=== PATIENT | female | born 1945 | race Caucasian/White ===

== ENCOUNTER → 2023-05-22 10:55 | Outpatient (REF) | payer OTHER, SELFPAY ==
[2023-05-22 11:43] LABS: ALT (SGPT) 13 U/L (0-35); AST (SGOT) 17 U/L (14-36); Albumin 2.9 g/dl (3.5-5.0); Alkaline Phosphatase 91 U/L (38-126); Blood Urea Nitrogen 29 mg/dl (7-17); Calcium 8.3 mg/dl (8.4-10.2); Carbon Dioxide 31 mmol/L (22-30); Chloride 98 mmol/L (98-107); Glucose 207 mg/dl (70-99); HDL Cholesterol 44 mg/dl; LDL Cholesterol, Calculated 67 mg/dl; Sodium 137 mmol/L (135-145); Total Bilirubin 0.5 mg/dl (0.2-1.3); Total Cholesterol 127 mg/dl (50-199); Total Protein 5.9 g/dl (6.3-8.2); Triglyceride 80 mg/dl (10-149); Very Low Density Lipoprotein 16 mg/dl (0-30); eGFR > 60.00
[2023-05-22 12:29] LABS: Glycohemoglobin (HgbA1c) 8.8 % (4.0-5.6)
== END ==
LOC: OLABWHC 10:55
PROVIDERS: ATTENDING PHYSICIAN Internal Medicine
DX: E11.9 Type 2 diabetes mellitus without complications (principal); D64.9 Anemia, unspecified; E78.5 Hyperlipidemia, unspecified; I50.9 Heart failure, unspecified
CPT/HCPCS: 36415; 80053; 80061; 83036

== ENCOUNTER → 2023-06-19 08:50 | Outpatient (REF) | payer OTHER, SELFPAY ==
[2023-06-19 10:13] LABS: Hematocrit 34.6 % (37.0-47.0); Hemoglobin 10.4 g/dL (12.0-16.0); Mean Corp Hgb Conc. 30.1 g/dL (33.0-37.0); Mean Corpuscular Hgb 25.5 pg (27.0-31.0); Mean Corpuscular Volume 84.8 fL (81.0-99.0); Mean Platelet Volume 10.5 fL (7.4-10.4); Platelet Count 276 10^3/uL (130-400); Red Blood Cell Count 4.08 10^6/uL (4.20-5.40); Red Cell Dist. Width 14.3 % (11.5-14.5); White Blood Cell Count 7.2 10^3/uL (4.8-10.8)
[2023-06-19 10:27] LABS: ALT (SGPT) 12 U/L (0-35); AST (SGOT) 20 U/L (14-36); Albumin 3.3 g/dl (3.5-5.0); Alkaline Phosphatase 100 U/L (38-126); Blood Urea Nitrogen 30 mg/dl (7-17); Calcium 8.4 mg/dl (8.4-10.2); Carbon Dioxide 32 mmol/L (22-30); Chloride 101 mmol/L (98-107); Glucose 232 mg/dl (70-99); Magnesium 2.2 mg/dl (1.6-2.3); Potassium 4.9 mmol/L (3.5-5.1); Sodium 136 mmol/L (135-145); Total Bilirubin 0.3 mg/dl (0.2-1.3); Total Protein 6.6 g/dl (6.3-8.2); eGFR > 60.00
[2023-06-19 13:58] LABS: Glycohemoglobin (HgbA1c) 8.8 % (4.0-5.6)
== END ==
LOC: OLABWHC 08:50
PROVIDERS: ATTENDING PHYSICIAN Internal Medicine
DX: I50.9 Heart failure, unspecified (principal); E11.40 Type 2 diabetes mellitus with diabetic neuropathy, unspecified; D64.9 Anemia, unspecified
CPT/HCPCS: 36415; 80053; 83036; 83735; 85027

== ENCOUNTER → 2023-06-30 14:27 | Outpatient (REF) | payer OTHER, MEDICAID, SELFPAY | LOC: DHCBC MAIN 14:27 | PROVIDERS: ATTENDING PHYSICIAN Internal Medicine; FAMILY PHYSICIAN Physician Assistant | DX: Z95.2 Presence of prosthetic heart valve (principal); I50.32 Chronic diastolic (congestive) heart failure; I63.9 Cerebral infarction, unspecified | CPT/HCPCS: 93306 ==

== ENCOUNTER → 2023-07-17 12:11 | Outpatient (REF) | payer OTHER, SELFPAY ==
[2023-07-17 12:35] LABS: Hematocrit 34.2 % (37.0-47.0); Hemoglobin 10.4 g/dL (12.0-16.0); Mean Corp Hgb Conc. 30.4 g/dL (33.0-37.0); Mean Corpuscular Hgb 25.7 pg (27.0-31.0); Mean Corpuscular Volume 84.4 fL (81.0-99.0); Mean Platelet Volume 10.2 fL (7.4-10.4); Platelet Count 226 10^3/uL (130-400); Red Blood Cell Count 4.05 10^6/uL (4.20-5.40); Red Cell Dist. Width 15.9 % (11.5-14.5); White Blood Cell Count 6.3 10^3/uL (4.8-10.8)
[2023-07-17 12:50] LABS: Blood Urea Nitrogen 30 mg/dl (7-17); Calcium 8.7 mg/dl (8.4-10.2); Carbon Dioxide 33 mmol/L (22-30); Chloride 101 mmol/L (98-107); Glucose 151 mg/dl (70-99); Magnesium 2.4 mg/dl (1.6-2.3); Potassium 5.4 mmol/L (3.5-5.1); Sodium 136 mmol/L (135-145); eGFR > 60.00
[2023-07-17 13:38] LABS: Glycohemoglobin (HgbA1c) 8.5 % (4.0-5.6)
== END ==
LOC: OLABWHC 12:11
PROVIDERS: ATTENDING PHYSICIAN Internal Medicine
DX: E11.9 Type 2 diabetes mellitus without complications (principal); I50.9 Heart failure, unspecified; I10 Essential (primary) hypertension
CPT/HCPCS: 36415; 80048; 83036; 83735; 85027

== ENCOUNTER → 2023-08-05 12:21 | Outpatient (REF) | payer OTHER, SELFPAY ==
[2023-08-05 12:59] LABS: Hematocrit 33.7 % (37.0-47.0); Hemoglobin 10.1 g/dL (12.0-16.0); Mean Corpuscular Hgb 25.7 pg (27.0-31.0); Mean Corpuscular Volume 85.8 fL (81.0-99.0); Mean Platelet Volume 10.6 fL (7.4-10.4); Platelet Count 211 10^3/uL (130-400); Red Blood Cell Count 3.93 10^6/uL (4.20-5.40); Red Cell Dist. Width 16.5 % (11.5-14.5); White Blood Cell Count 10.1 10^3/uL (4.8-10.8)
[2023-08-05 13:38] LABS: Blood Urea Nitrogen 48 mg/dl (7-17); Calcium 8.7 mg/dl (8.4-10.2); Carbon Dioxide 29 mmol/L (22-30); Chloride 95 mmol/L (98-107); Glucose 149 mg/dl (70-99); Potassium 5.8 mmol/L (3.5-5.1); Sodium 134 mmol/L (135-145); eGFR 41.83
[2023-08-05 13:43] LABS: NT-proBNP 9250 pg/ml
== END ==
LOC: OLABWHC 12:21
PROVIDERS: ATTENDING PHYSICIAN Internal Medicine
DX: R60.9 Edema, unspecified (principal); I89.0 Lymphedema, not elsewhere classified; I50.32 Chronic diastolic (congestive) heart failure; E11.00 Type 2 diabetes mellitus with hyperosmolarity without nonketotic hyperglycemic-hyperosmolar coma (NKHHC)
CPT/HCPCS: 36415; 80048; 83880; 85027

== ENCOUNTER 2023-08-05 23:13 | Inpatient (IN) | payer OTHER, SELFPAY ==
[2023-08-05 21:11] VITALS: BMI 46.8
[2023-08-05 21:17] VITALS: BP 138/66
--- NOTE | 2023-08-05 21:33 | ED.GENMED ---
History of Present Illness
General
Chief Complaint: Breathing Problem
Source: patient and ambulance crew
Exam Limitations: none
Time Seen by Provider: 08/05/23 21:17
Nursing documentation reviewed up to this point in time: agreed with
Travel History
Have you had any contact with someone who has COVID-19?: Unable to Answer
Do you have any symptoms of coronavirus? Fever > 100 degrees, chills, cough, shortness of breath, sore throat, loss of taste or smell, muscle aches, or headache?: Yes
Symptoms:: shortness of breath
History of Present Illness
History of Present Illness:
78-year-old female presents emergency department for shortness of breath and hypoxia. EMS reports oxygen reading of 75% on 4 L nasal cannula prior to arrival. She is normally on room air, no home oxygen is listed in her past medical history. She
is confused as to place and year.
Past History
Past History
ED Past Medical History: Asthma, Hypercholesterolemia, NIDDM, Hypothyroidism and Other (Sciatica, Cauda Equina Syndrome, Ulcers)
ED Past Surgical History: Appendectomy, Cardiac (Pacemaker, Aortic valve replaced), Gynecological (Right Oophorectomy), Tonsilectomy and Other (Cataracts, femoral Aneurysm repair)
Patient has exhibited threatening behavior?: No
PSI?: No
Social History
Tobacco: Non-smoker
Alcohol: None
Personal:
Living: assisted living
Review of Systems
Review of Systems
Allergies reviewed?: Yes
All Other Systems: Not applicable
Constitutional: Reports fever
EENT: Reports no symptoms
Respiratory: Reports trouble breathing
Cardiac: Reports no symptoms
ABD/GI: Reports no symptoms
: Reports no symptoms
Musculoskeletal: Reports no symptoms
Skin: Reports no symptoms
Phy Exam
Physical Exam
Physical Exam:
Physical Exam
General: Moderate distress, ill-appearing, obese
Neck: supple. no meningeal signs. normal posterior pharynx
Heart: s1/s2 tachycardia, no murmur. equal radial
pulses.
HEENT: Pupils equal round reactive to light, EOMI
Lungs: Moderate respiratory distress. Decreased with rales and rhonchi at bases bilaterally
Abdomen: normal bowel sounds. not tender. no CVAT
Neuro: alert to person. no focal neurological deficits cranial nerves II through XII intact
Skin: no rash, Lidoderm patch mid back
Psychiatric: well kept. interactive and cooperative
Extremities: no edema. no calf tenderness. negative homans. good distal pulses
Scores
Heart Failure Risk
Heart Failure Risk Score: Yes
History of Stroke or TIA: Yes
History of intubation for respiratory distress: No
Heart rate on ED arrival >/= 110: No
SaO2 <90% on arrival on room air: Yes
HR >/=110 during 3min walk test (or too ill to perform test): Yes
ECG has acute ischemic changes: No
Urea >/=12mmol/L (BUN 33.6mg/dL): Yes
Serum CO2>/=35mmol/L: No
Troponin I or T elevated to [place] Level (0.4mg/dL): No
NT-proBNP >/=5,000ng/L (5,000pg/ml): Yes
HF Risk Score: 6
Admission Status: VERY HIGH RISK 55.3% Consider admission to hospital
Course
Orders/Labs/Results
Orders:
Orders
08/05/23 21:22
Acetaminophen [Tylenol/Feverall] 650 mg .ROUTE .STK-MED ONE
08/05/23 21:31
Electrocardiogram (*1) Stat
Reason for Study: Other
Other Reason for Exam: pneumonia
Cardiac Monitoring- Treatment ONCE
EKG- Treatment ONCE
IV Insert/Care/Rem.- Treatment PRN
08/05/23 21:32
CR Chest Portable - 1 View Urgent
Comment:
Reason For Exam: short of breath, fever
Reason Study Needs to be Portable: Patient Unstable
08/05/23 21:41
Acetaminophen [Tylenol/Feverall] 650 mg RECTAL NOW STA
08/05/23 21:56
COVID-19 Antigen Urgent
Source: Nasal Swab
08/05/23 21:57
Complete Blood Count/With Diff Urgent
Comprehensive Metabolic Panel Urgent
Lactic Acid Q4H
Comment: CANCEL 2nd LACTIC ACID IF 1st LACTIC ACID IS LESS THAN 2
Troponin I Urgent
Blood Culture Urgent
ISAIAS Source: Blood/Venous
Specimen Description:
Influenza A+B Rapid Molecular Urgent
ISAIAS Source: Nasal Swab
Specimen Description:
08/05/23 22:43
Cefepime HCl [Maxipime] 2,000 mg IV NOW STA
08/05/23 22:55
Blood Culture Urgent
ISAIAS Source: Blood/Venous
Specimen Description:
08/05/23 23:06
Urinalysis Reflex To Culture Stat
Date Specimen was Collected: 08/05/23
Time Specimen was Collected: 23:05
Urine Microscopic Reflex Cult Stat
08/05/23 23:12
Arterial Blood Gas Urgent
%Oxygen/Room Air: 90% on 6L
Abnormal Lab Results
08/05/23 08/05/23
21:57 23:06
WBC 11.3 H 10^3/uL
(4.8-10.8)
RBC 3.90 L 10^6/uL
(4.20-5.40)
Hgb 10.1 L g/dL
(12.0-16.0)
Hct 32.8 L %
(37.0-47.0)
MCH 25.9 L pg
(27.0-31.0)
MCHC 30.8 L g/dL
(33.0-37.0)
RDW 16.4 H %
(11.5-14.5)
Abs Immat Gran (auto) 0.2 H 10^3/uL
(0-0.05)
Absolute Neuts (auto) 8.4 H 10^3/uL
(1.4-6.5)
Absolute Monos (auto) 1.1 H 10^3/uL
(0.1-0.6)
Immature Gran % 2.0 H %
(0-0.5)
Lymphocytes % 13.4 L %
(20.5-51.1)
Monocytes % 9.7 H %
(1.7-9.3)
Sodium 131 L mmol/L
(135-145)
Potassium 5.7 H mmol/L
(3.5-5.1)
BUN 52 H mg/dl
(7-17)
Creatinine 1.2 H mg/dL
(0.6-1.0)
Glucose 167 H mg/dl
(70-99)
AST 37 H U/L
(14-36)
Alkaline Phosphatase 160 H U/L
(38-126)
Troponin I 0.070 H* ng/ml
Urine Bacteria (Reflex) Few A
(Negative)
Urine Albumin (Reflex) 1+ A
(Neg - Trace)
08/05/23 21:57
08/05/23 21:57
Vital Signs
Initial and Last Documented VS:
Initial Vital Signs
Temp Pulse Resp BP Pulse Ox
99.0 F 104 16 138/66 82
08/05/23 21:17 08/05/23 21:17 08/05/23 21:17 08/05/23 21:17 08/05/23 21:17
Last Documented Vital Signs
Temp Pulse Resp BP Pulse Ox
99.1 F 100 17 166/82 92
08/06/23 04:21 08/06/23 02:30 08/06/23 02:30 08/06/23 01:30 08/06/23 03:04
MDM/Problems Addressed
Differential Diagnosis Includes:
Pneumonia, CHF
MDM/Problems Addressed:
78-year-old female with hypoxia, fever, acute on chronic CHF. She was antibiotics, IV Lasix. Admit to hospitalist.
Chronic conditions affecting care: DM and Cardiomyopathy
Acute Exacerbation and/or Progression of Chronic Illness: DM and Cardiomyopathy
*Radiology
Radiology exam reviewed: radiology read reviewed (Chest x-ray cardiomegaly, interstitial markings increased, multifocal infection versus pulmonary edema)
*Pulse Oximetry
Patient hypoxic: yes
*EKG
Interpreted by ED Provider?: Yes
EKG Intrepretation Date: 08/05/23
EKG Intrepretation Time: 21:48
Interpretation: abnormal
Comparison EKG: no comparison EKG present
Heart Rate: 101
Rate: tachycardiac
Rhythm: av sequential
[place]: normal axis
Interval: normal interval
QRS Pattern: normal QRS
Ischemia: no ischemia
*Dog Warden Interpretation
Rate: tachycardiac
Interpretation: abnormal
Heart Rate: 101
Rhythm: av sequential
*Critical Care Note
Total Time (30-74mins, 75-104mins- exclusive of procedures): Not Applicable
Patient Management
Social determinants of health affecting care: Living situation
Discussion with other providers: Hospitalist
Escalation/DeEscalation of care consider admission/obs:
admit indicated
ED Attending Note
-
Portions of this chart may have been created with voice recognition software.� Occasional wrong word or��sound alike� substitutions may have occurred due to the inherent limitations of voice recognition software.
Discharge Plan
Departure
Patient Disposition: Admit
Date of Disposition: 08/05/23
Time of Disposition: 22:34
Admit to: IMU
Presentation/result/management discussed w/ accepting MD/DO: Hospitalist
Patient with high blood pressure during this ER visit?: Yes
Condition: Fair
Discharge Problem:
Pneumonia, CHF (congestive heart failure)
Interventions
Interventions:
*Risk Screen - Suicide Last Done: 08/05/23 21:17
*General Assessment Last Done: 08/05/23 21:17
*Neglect/Abuse Screening Last Done: 08/05/23 21:17
ED- Fall Risk Assessment Last Done: 08/05/23 21:17
*ED COVID-19 Vaccine History Last Done: 08/05/23 21:17
*Nursing Disposition Last Done: 08/06/23 01:30
ED- Cardiac Assessment Last Done: 08/05/23 21:33
ED- Pulmonary Assessment Last Done: 08/05/23 21:33
Discharge Date and Time
Discharge Date/Time: 08/06/23 01:30
[2023-08-05] MEDS: TYLENOL/FEVERALL 650 MG RECTAL (21:42)
[2023-08-05 22:07] LABS: % Basophils 0.6 % (0-2); % Eosinophils 0.1 % (0-6); % Lymphocytes 13.4 % (20.5-51.1); % Monocytes 9.7 % (1.7-9.3); % Neutrophils 74.2 % (42.2-75.2); Absolute Basophils 0.1 10^3/uL (0-0.2); Absolute Immature Granulocytes 0.2 10^3/uL (0-0.05); Absolute Lymphocytes 1.5 10^3/uL (1.2-3.4); Absolute Monocytes 1.1 10^3/uL (0.1-0.6); Absolute Neutrophils 8.4 10^3/uL (1.4-6.5); Hematocrit 32.8 % (37.0-47.0); Hemoglobin 10.1 g/dL (12.0-16.0); Mean Corp Hgb Conc. 30.8 g/dL (33.0-37.0); Mean Corpuscular Hgb 25.9 pg (27.0-31.0); Mean Corpuscular Volume 84.1 fL (81.0-99.0); Mean Platelet Volume 9.7 fL (7.4-10.4); Nucleated Red Blood Cells % 0.5 %; Platelet Count 217 10^3/uL (130-400); Red Cell Dist. Width 16.4 % (11.5-14.5); White Blood Cell Count 11.3 10^3/uL (4.8-10.8)
[2023-08-05 22:17] LABS: Lactic Acid 0.7 mmol/L (0.7-2.0)
[2023-08-05 22:21] LABS: COVID-19 Antigen Negative (Negative)
[2023-08-05 22:30] LABS: ALT (SGPT) 24 U/L (0-35); AST (SGOT) 37 U/L (14-36); Albumin 3.6 g/dl (3.5-5.0); Alkaline Phosphatase 160 U/L (38-126); Blood Urea Nitrogen 52 mg/dl (7-17); Calcium 8.6 mg/dl (8.4-10.2); Carbon Dioxide 30 mmol/L (22-30); Chloride 98 mmol/L (98-107); Estimated Creatinine Clearance 46 ml/min; Glucose 167 mg/dl (70-99); Potassium 5.7 mmol/L (3.5-5.1); Sodium 131 mmol/L (135-145); Total Bilirubin 0.5 mg/dl (0.2-1.3); eGFR 46.05
[2023-08-05 22:37] VITALS: BP 116/100
[2023-08-05 23:00] VITALS: BP 129/90
[2023-08-05 23:13] LABS: Urine Albumin 1+ (Neg - Trace); Urine Bilirubin Negative (Negative); Urine Character Clear (Clear); Urine Color Yellow; Urine Glucose Negative (Negative); Urine Ketone Negative (Negative); Urine Leukocyte Negative (Negative); Urine Nitrite Negative (Negative); Urine Occult Blood Negative (Negative); Urine Specific Gravity 1.015 (<1.030); Urine Urobilinogen Negative (Neg - 1+)
[2023-08-05 23:20] LABS: Urine Red Blood Cell 0-2 /HPF (0-2)
[2023-08-05 23:21] LABS: Urine Bacteria Few (Negative); Urine White Cell 0-2 /HPF (0-5)
[2023-08-05 23:30] VITALS: BP 109/58
--- NOTE | 2023-08-05 23:49 | HPS.HSE ---
Addendum entered and electronically signed by Christian Lockhart DO 08/06/23 01:03:
Late Entry - Patient seen and examined independently on 08/05/23. Agree with findings and plan as set forth by Gloria Mohan PA-C.
Patient is a 78y F with PMH significant for chronic respiratory failure (hypoxemic and hypercapnic), CHF and DM-II who presents to ED for evaluation of hypoxemia. Patient is lethargic / mild confused in the ED and not able to contribute overmuch
to this history. She was noted to be hypoxemic at [facility] and sent for evaluation. No noted coughing. No complaints of chest pain. Patient is noted here to be hypoxemic and hypercapnic as well as febrile to 101.8.
Ass:
Acute on Chronic Hypoxemic and Hypercapnic Respiratory Failure
Acute TME secondary to the above
Chronic HFpEF - ? Acute component
Fever - Possible Atypical Pneumonia, Aspiration, etc
Non-Ischemic Myocardial Injury
SUMMER, Hyperkalemia
DM-II
ASCVD
Hypothyroidism
Morbid Obesity due to excess calories
Plan:
Admit for further evaluation and treatment.
Single dose of IV Lasix given on admission - follow for clinical response and changes in potassium / renal function.
Presentation seems most consistent to me to atypical pneumonia / viral infection.
IV abx for now. Follow-up culture data including urine testing, etc.
Hypercapnic on ABG done on admission - begin / continue PAP therapy and adjust as needed.
Cardio / Pulmonary consulted for further recommendations.
Continue basal : bolus insulin regimen.
Follow for clinical improvement.
Original Note:
Family Physician
-
Family Physician: Edy Santos
Chief Complaint
-
Hypoxia
History of Present Illness
Patient is a 78 y/o female with a past medical history of chronic hypoxic/hypercapnic heart failure, morbid obesity, sick sinus syndrome (status post pacemaker), asthma, hyperlipidemia, diabetes mellitus, obesity hypoventilation syndrome, and
cerebrovascular accident who presents for hypoxia from the [facility]. Patient is a poor historian as at present time she only opens her eyes to her name, but quickly falls back asleep. She does not normally wear oxygen but the [facility]
reports a pulse oximetry reading of 75% on 4L of oxygen by nasal canula earlier tonight. Review of records indicate significant weight gain compared to prior hospitalization. Upon arrival she was also noted to be febrile.
Medical History
Past Medical History
Past Medical History: Reports Other
Additional Past Medical History:
Chronic Hypoxemic / Hypercapnic Respiratory Failure
Chronic HFpEF
Aortic Stenosis s/p TAVR
Diabetes Mellitus, Type II
Hyperlipidemia
Hypothyroidism
ASCVD / CVA
Morbid Obesity due to Excess Calories
Chronic Lymphedema / Venous Stasis Dermatitis
Cauda Equina Syndrome
Past Surgical History: Reports Other
Additional Past Surgical History:
TAVR
PPM Placement
Femoral Pseudoaneurysm Repair
Cauda Equina Surgery (02/2022)
Social History
Tobacco: Non-smoker
Alcohol: Occasional
Drug: None
Living: Care Home
Family History
Family History: Not pertinent
Allergies / Home Medications
Allergies reflects when Allergies were last updated in [facility] [employer].
Home Medications with original date entered in [facility]
Allergy/Medication List:
Allergies
Allergy/AdvReac Type Severity Reaction Status Date / Time
erythromycin base Allergy Anaphylaxis Verified 08/05/23 21:17
Home Medications
albuterol sulfate 90 mcg/actuation aerosol inhaler 2 puff inhalation R Q4HPRN PRN sob/wheezing 05/01/22
fluticasone furoate 200 mcg-vilanterol 25 mcg/dose inhalation powder (Breo Ellipta) 1 inh inhalation R DAILY Lung/breathing issues 05/01/22
levothyroxine 50 mcg tablet 50 mcg PO DAILY AT 0700 Thyroid 05/01/22
metoprolol succinate 50 mg tablet,extended release 24 hr 50 mg PO DAILY Blood pressure 05/01/22
ondansetron HCl 4 mg tablet 4 mg PO [id number] PRN nausea 11/03/22
sodium chloride 0.65 % nasal spray aerosol (Saline Nasal) 1 sprays intranasal QIDPRN PRN dry nose/congestion 11/22/22
aspirin 81 mg chewable tablet 81 mg PO DAILY #30 tabs 11/25/22
acetaminophen 325 mg tablet 650 mg PO Q6HPRN PRN Mild Pain / Temp > 101 08/05/23
acetaminophen 500 mg tablet 1,000 mg PO DAILY 08/05/23
benzonatate 100 mg capsule 200 mg PO Q8HPRN PRN cough 08/05/23
ciprofloxacin 0.3 %-dexamethasone 0.1 % ear drops,suspension 4 drp LEFT EAR BID 08/05/23
diphenhydramine HCl 25 mg capsule (Benadryl) 25 mg PO Q8HPRN PRN itching 08/05/23
docusate sodium 100 mg capsule 100 mg PO [id number] PRN constipation 08/05/23
emollient combination no.119 (Eucerin Advanced Repair topical cream) 1 applic topical BID 08/05/23
furosemide 40 mg tablet (Lasix) 20 mg PO DAILY 08/05/23
hydrocortisone 1 % topical cream (Preparation H Hydrocortisone) 1 applic topical [id number] PRN hemorroids 08/05/23
insulin glargine 100 unit/mL subcutaneous solution (Lantus U-100 Insulin) 34 unit SC HS Diabetes 08/05/23
insulin lispro 100 unit/mL subcutaneous pen (Admelog SoloStar U-100 Insulin lispro) 0 - 7 sliding scale dose SC AC 08/05/23
insulin lispro 100 unit/mL subcutaneous pen (Admelog SoloStar U-100 Insulin lispro) 10 unit SC AC 08/05/23
ipratropium 0.5 mg-albuterol 3 mg (2.5 mg base)/3 mL nebulization soln 3 ml inhalation R BID 08/05/23
ipratropium 0.5 mg-albuterol 3 mg (2.5 mg base)/3 mL nebulization soln 3 ml inhalation R Q4HPRN PRN cough 08/05/23
ipratropium 0.5 mg-albuterol 3 mg (2.5 mg base)/3 mL nebulization soln 3 ml inhalation R QID 08/05/23
lidocaine 4 % topical patch 1 patch topical DAILY 08/05/23
loperamide 2 mg tablet (Imodium A-D) 2 mg PO Q8HPRN PRN diarrhea 08/05/23
nystatin 100,000 unit/gram topical powder 1 applic topical BID 08/05/23
ofloxacin 0.3 % eye drops 2 drp RIGHT EYE Q4 08/05/23
rosuvastatin 40 mg tablet 40 mg PO HS 08/05/23
saliva substitute combo no.9 (Biotene Dry Mouth Oral Rinse mouthwash) 15 ml PO Q8HPRN PRN dry mouth 08/05/23
Review of Systems
-
Unable to obtain full review of systems at this time due to: Acuity
Physical Exam
Vital Signs
Vital Signs
Temp Pulse Resp BP Pulse Ox
101.8 F H 101 25 129/90 96
08/05/23 21:18 08/05/23 23:15 08/05/23 23:15 08/05/23 23:00 08/05/23 23:15
Physical Exam
General: Well Developed and Well Nourished
HEENT: Oxygen (Nasal Cannula)
Respiratory: Wheezes (Diffuse anteriorly)
Cardiac: S1/S2 and Regular Rhythm
GI: Soft and Non Tender
Musculoskeletal: No Clubbing and No Cyanosis
Skin: Warm and Dry
Neuro: Other (Opens eyes briefly to name)
Laboratory Results
-
08/05/23 21:57
08/05/23 21:57
Laboratory Results
Lactic Acid 0.7 mmol/L (0.7-2.0) 08/05/23 21:57
Total Bilirubin 0.5 mg/dl (0.2-1.3) 08/05/23 21:57
AST 37 U/L (14-36) H 08/05/23 21:57
ALT 24 U/L (0-35) 08/05/23 21:57
Alkaline Phosphatase 160 U/L (38-126) H 08/05/23 21:57
Troponin I 0.070 ng/ml H* 08/05/23 21:57
Impression/Plan
-
Acute on Chronic Hypoxemic / Hypercapnic Respiratory Failure
-Admit to IMU
-Check ABG
-Continue supplemental oxygen
-Consider BiPAP
-Consult Pulmonary
Acute on Chronic HFpEF
-Give 40mg IV Now - Further diuretics based on response and repeat labs in AM
-Monitor Is&Os and Daily Weights
Non-Ischemic Myocardial Injury secondary to CHF
-Continue to trend troponin
Hyperkalemia
-Give insulin plus dextrose now
-Recheck potassium later tonight
Acute Kidney Injury
-Monitor creatinine closely
-Check bladder scans
Fever, possible pneumonia
-Continue cefepime and vancomycin
-Check urinalysis with reflex to culture
-Check blood cultures
Diabetes Mellitus, Type II
-Half usual dose of Lantus until able to resume diet
-Monitor sugars and continue coverage insulin
Hyperlipidemia
-Hold statin
Hypothyroidism
-Resume levothyroxine when able to take oral meds
ASCVD / CVA
-Resume aspirin when able to take oral meds
Morbid Obesity due to Excess Calories
-Affects all aspects of care
DVT proph: SC Heparin
Code Status: Full Code
[2023-08-05] MEDS: LASIX 40 MG IV (23:52)
[2023-08-05] MEDS: NOVOLIN R 10 UNITS IV (23:59)
[2023-08-06] VITALS (22 sets, daily range): BP systolic 131–191; BP diastolic 47–117; PULSE 2–96; BMI 46.2
[2023-08-06] LABS: Glucose - Point of Care 165 mg/dl (70-99)
[2023-08-06] MEDS: DEXTROSE 50% SYRINGE 25 GRAMS IV (00:06)
[2023-08-06 00:12] LABS: B.E. 3.5 mmol/L; HCO3 33.1 mmol/L (21-28); O2 Saturation % 95.4 % (94-98); PO2 367 mmHg (83-108); pH 7.23 (7.35-7.45)
[2023-08-06] MEDS: MAXIPIME 2000 MG IV ×2 (00:14→13:40)
[2023-08-06 00:21] LABS: PCO2 79 mmHg (32-35)
[2023-08-06] MEDS: VANCOCIN 540 MG IV (01:00)
[2023-08-06] MEDS: HEPARIN 5000 UNITS SC ×3 (03:55→18:26)
[2023-08-06] MEDS: BENADRYL 12.5 MG IV (04:50)
--- NOTE | 2023-08-06 04:54 | PTCARENOTE ---
Pt arrived to IMU via stretcher at 0220 and pulled over to her bed. She arrived on Bipap and was tolerating it well at 8 liters with the Bipapo. She moans at times and seems zakiya have some pain but cannot communicate where it is. She arrived with
a pure wick and is incontinent of clear yellow urine. Vancomycin infusing on arrival also. Monitor is sinus rhythm 99 BPM and RR is 20-23. P Ox was 94% over the following 2 hours her O2 sat dropped below 88% so increased her O2 to 10 Liters with
the bipap. At 0430, pt vomited into her bipap mask. Was suctioned orally for yellow emesis. Resp therapist was available and pt was switched to Mid flow NC at 12 liters to keep her sat > 90%. [employer] FINISHER notified and orders obtained for Benadryl IV for
nausea. and given. Pt snores when she is off bipap. HOB elevated and pt does not open her eyes to her name or to painful stimuli. She will move all extremities when repositioned and turned. HOB elevated for aspiration precautions. Will
continue to monitor pt.
[2023-08-06 05:19] LABS: Blood Urea Nitrogen 49 mg/dl (7-17); Carbon Dioxide 31 mmol/L (22-30); Chloride 96 mmol/L (98-107); Estimated Creatinine Clearance 46 ml/min; Glucose 191 mg/dl (70-99); HDL Cholesterol 55 mg/dl; LDL Cholesterol, Calculated 54 mg/dl; Magnesium 2.6 mg/dl (1.6-2.3); Potassium 5.5 mmol/L (3.5-5.1); Sodium 137 mmol/L (135-145); Total Cholesterol 141 mg/dl (50-199); Triglyceride 163 mg/dl (10-149); Very Low Density Lipoprotein 32 mg/dl (0-30); eGFR 46.05
[2023-08-06 05:21] LABS: Troponin I 0.073 ng/ml
[2023-08-06 05:46] LABS: TSH Reflex To Free T4 2.76 uIU/ml (0.47-4.68)
[2023-08-06] MEDS: DUONEB 3 ML INH ×4 (07:19→20:07)
[2023-08-06] MEDS: PULMICORT 0.5 MG INH ×2 (07:19→20:07)
--- NOTE | 2023-08-06 08:05 | PHA.VAN.IN ---
Assessment
- Assessment
Renal Function: Appears elevated from baseline (SCR 1.2 vs ~0.9; BUN elevated as well)
Concomitant Antimicrobials: cefepime
Plan
- Plan
Initial / Loading Dose: 2000mg - 08/05 01:00 - will give additional 500mg x1 at 1800 based on weight
Maintenance Regimen: dosing by level
Monitoring: random 08/05
Pharmacokinetics Vancomycin I
- -
Patient Age: 78
Patient Sex: Female
Vancomycin Day #: 1
Indication: Pulmonary/Respiratory
Requesting Provider: Hattie Mohan
Pertinent Antimicrobial Allergies:
erythromycin base - anaphylaxis
Height / Weight:
Height 5 ft 2 in
Actual Weight 114.5 kg
Pertinent Past Medical History: BMI ~46, DM2
- Vital Signs / Lab Results
Temp Pulse Resp BP Pulse Ox
100.0 F 71 18 154/59 95
08/06/23 07:24 08/06/23 07:21 08/06/23 07:21 08/06/23 06:00 08/06/23 07:21
Lab Results - Hematology
08/05/23
21:57
WBC 11.3 H
Lab Results - Chemistry
08/05/23 08/06/23
21:57 04:34
BUN 52 H 49 H
Creatinine 1.2 H 1.2 H
Estimated Creat Clear 46 46
Albumin 3.6
08/05/23 08/06/23
21:57 01:45
Lactic Acid 0.7 Cancelled
Lab Results - Urine
08/05/23
23:06
Urine Nitrite (Reflex) Negative
Leukocyte Esterase Rfl Negative
Urine WBC (Reflex) 0-2
Urine Bacteria (Reflex) Few A
Microbiology Results
08/06/23 04:23 Legionella Urinary Antigen - Final
Urine Negative for Legionella pneumophila Serogroup 1 antigen.
A negative result does not rule out the possiblity of
Legionella infection due to other serogroups or species of
Legionella. Clinical correlation is recommended.
Streptococcus pneumoniae Antigen (M - Final
Negative for Streptococcus pneumoniae antigen.
A negative result does not exclude infection with
Streptococcus pneumoniae. Clinical correlation is
recommended.
08/05/23 21:57 Influenza Types A & B (SUYAPA) - Final
Nasal Swab Negative for Influenza A & B, NAAT
Negative results must be combined with clinical observations
and patient history.
Nucleic Acid Amplification test (NAAT)performed on the
[employer] platform.
--- NOTE | 2023-08-06 08:16 | W.PN.HOSP.TC ---
Today's Communication/Plan
-
IV antibiotics. IV Lasix.
Assessment / Plan
Assessment / Plan
Physical exam:
General: Acutely ill
HEENT: Normocephalic, Atraumatic and Moist Mucous Membranes
Respiratory: Coarse crackles bilateral; Negative Wheezes or Rhonchi
Cardiac: Regular Rhythm and S1/S2
GI: Soft, Nontender and Nondistended
Musculoskeletal: No Clubbing, No Cyanosis. Bilateral edema in lower extremities present.
Neuro: Awake, Alert and Disoriented
Psych: Calm
A/P:
Acute on Chronic Hypoxemic / Hypercapnic Respiratory Failure-likely multifactorial in etiology pneumonia and heart failure, predominant culprits.
-Admitted to IMU
-Checked ABG
-Continue supplemental oxygen
-Consider BiPAP
-Consulted Pulmonary and awaiting their input
-Updated daughter over the phone today--> daughter tells me she does have frequent aspiration pneumonia and important to mention she held her diuretics herself because of an upcoming family dinner that she was going out.
Pneumonia, likely aspiration pneumonia or healthcare associated
-On IV antibiotics, cefepime and vancomycin
-Follow-up cultures
-Speech therapy swallowing eval
-Keep n.p.o. until SP
-CRP elevated more than 270, procalcitonin elevated 0.87
Acute on Chronic HFpEF
-Give 40mg IV. Will continue Lasix 20 mg IV daily
-Consulted cardiology and appreciated their input
-Monitor Is&Os and Daily Weights
Toxic metabolic encephalopathy
-Obtain CT of the head today
-Monitor mental status closely
Non-Ischemic Myocardial Injury secondary to CHF
-Continue to trend troponin
Hyperkalemia
-Give insulin plus dextrose. Now on IV Lasix as well
-Recheck potassium in a.m. and will give Lokelma if elevated but hold off since on diuretics
Acute Kidney Injury or more likely CKD
-Monitor creatinine closely
-Check bladder scans
Diabetes Mellitus, Type II
-Half usual dose of Lantus until able to resume diet
-Monitor sugars and continue coverage insulin
Hyperlipidemia
-Hold statin
Hypothyroidism
-Resume levothyroxine when able to take oral meds
ASCVD / CVA
-Resume aspirin when able to take oral meds
Morbid Obesity due to Excess Calories
-Affects all aspects of care
DVT proph: SC Heparin
Code Status: Full Code
Total time spent on today's encounter was 52 minutes which included time spent in counseling the patient/family regarding diagnosis and treatment plan as listed above, goals of care, and symptom management. Case was discussed with nursing staff,
specialists, and care coordinators/case management. All labs and imaging personally reviewed by me. Remainder the time spent in detailed review of previous records, lab data, imaging, and other medical provider documentation.
Anticipated Discharge: > 48 hours
Subjective/Interval History
-
Date of Service: August 06, 2023
Patient unable to give me any meaningful information today. Afebrile today with Tmax 101.8 Fahrenheit last evening
Objective Data
-
Labs:
Laboratory Results
08/05/23 08/05/23 08/06/23
04:00 21:57 00:02
WBC 11.3 H
Hgb 10.1 L
Hct 32.8 L
Plt Count 217
HCO3 33.1 H
Sodium 131 L
Potassium Cancelled 5.7 H
Chloride 98
Carbon Dioxide 30
BUN 52 H
Creatinine 1.2 H
Glucose 167 H
Calcium 8.6
Total Bilirubin 0.5
AST 37 H
ALT 24
Alkaline Phosphatase 160 H
08/06/23 08/06/23
04:34 04:34
WBC
Hgb
Hct
Plt Count
HCO3
Sodium 137
Potassium Cancelled 5.5 H
Chloride 96 L
Carbon Dioxide 31 H
BUN 49 H
Creatinine 1.2 H
Glucose 191 H
Calcium 9.0
Total Bilirubin
AST
ALT
Alkaline Phosphatase
Vital Signs:
Vital Signs
Temp Pulse Resp BP Pulse Ox
100.0 F 71 18 154/59 95
08/06/23 07:24 08/06/23 07:21 08/06/23 07:21 08/06/23 06:00 08/06/23 07:21
I&O
08/05/23 08/06/23 08/07/23
06:59 06:59 06:59
Intake Total 200 / 200
Output Total 450 / 450
Balance -250 / -250
--- NOTE | 2023-08-06 08:57 | CON.PUL ---
Addendum entered and electronically signed by Nweton Robison MD 08/06/23 15:38:
I called the daughter and answered all her questions. Pt does have a Hx of multiple pulmonary nodules in multiple lobes including RUL, LLL and RLL. I will re-check CT chest now to re-assess stability of these lung nodules.
Original Note:
Consultation
Consultation Request
Date/Time Consultation Requested: 08/06/2023214
Date/Time Consultation Performed: 08/06/2023851
Requesting Provider: Gloria Mohan PA-C
Performing Provider: Dr. Robison
Reason for Consultation: Acute hypoxia
Medical History
-
Chief Complaint: Shortness of breath
History of Present Illness:
78-year-old morbidly obese female never smoker with a past medical history of asthma, hypothyroidism, hyperlipidemia, history of CVA, DM type II, AAS s/p TAVR and at risk for DASHAWN who presents from [facility] with shortness of breath and
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 EMS reported SpO2 75% on 4 L nasal cannula and patient normally is on room air at the senior living. Patient arrived to the ER on a nonrebreather and was confused but alert. Patient was febrile in the ER to 101.8 �F, tachycardic to
104 bpm, breathing at 16-24 breaths/min, BP 138/66 and she was saturating 82% on room air which improved to 94% with 6 L/min. Labs showed acute on chronic hypercapnia with pH 7.23, pCO2 79 and pO2 367. Patient hyperkalemic to 5.7 with low sodium
of 131, creatinine 1.2, troponin mildly elevated at 0.07, urinalysis negative for signs of UTI and COVID antigen also negative. Blood cultures were collected. CXR obtained showed mild cardiomegaly with increased vascular interstitial markings
suggestive of acute pulmonary edema. CT head obtained due to AMS showing no acute intracranial pathology. She was given Tylenol in the ER for her fever and admitted to the hospitalist service. Given her fever, antibiotics were started and so was
IV Lasix given concern for volume overload via her CXR. Due to her high pCO2 with AMS, she was started on BiPAP and now pulmonary consulted for additional management/recommendations.
When saw the patient she was in bed, sleepy but easily arousable to voice/tactile stimuli. She is on BiPAP with VTe of 350-400mL and PIP of [id number]. SpO2 97%, BP 155/72. She is following commands. She is not in any acute distress.
Of note patient had followed with us at [facility] office with Dr. Aburto - lorraine steven on 01/20/2023. At that time patient was seen after her hospitalization with multiple prior admissions due to heart failure. She has known hypercapnic respiratory
failure likely due to OHS. She also has suspected DASHAWN. Sleep study was highly recommended and was pending at that time. Of note, patient is a never smoker. She does have a history of an abnormal CT chest with a right upper lobe nodule measuring
1.5 cm. Differential diagnosis of malignancy was discussed and patient did not want further evaluation with biopsy or therapy. Follow-up CT was also offered and she declined this. Patient is mainly wheelchair-bound and sedentary. She has a
history of asthma and is on Breo for this. Her last spirometry was in December 2022 showing complete reversal of a very severe obstructive lung defect. Also a very severe restrictive lung defect seen (FVC: 33% predicted).
PMHx: Hypothyroidism, morbid obesity, hyperlipidemia, hypertension, history of asthma, history of CVA, DM type II, history of pneumonia, aortic stenosis s/p TAVR, at risk for sleep apnea, history of UTI
PSHx: TAVR, pacemaker, left groin surgical repair of vascular access site
Past Medical History
Past Medical History: Other (Above as per HPI)
Past Surgical History: Other (Above as per HPI)
Social History
Tobacco: Non-smoker
Alcohol: None
Drug: None
Family History
Family History: Cancer (Mother (unknown type)), Diabetes (Maternal grandmother) and Hypertension (Father)
Allergies / Home Medications
Allergies
Allergy/AdvReac Type Severity Reaction Status Date / Time
erythromycin base Allergy Anaphylaxis Verified 08/05/23 21:17
Home Medications
�Medication �Instructions �Recorded �Confirmed �Last Taken �Type
albuterol sulfate 90 mcg/actuation 2 puff inhalation R Q4HPRN PRN 05/01/22 08/05/23 1 Day Ago History
aerosol inhaler sob/wheezing ~04/30/22
fluticasone furoate 200 1 inh inhalation R DAILY 05/01/22 08/05/23 1 Day Ago History
mcg-vilanterol 25 mcg/dose Lung/breathing issues ~04/30/22
inhalation powder (Breo Ellipta)
levothyroxine 50 mcg tablet 50 mcg PO DAILY AT 0700 Thyroid 05/01/22 08/05/23 1 Day Ago History
~04/30/22
metoprolol succinate 50 mg 50 mg PO DAILY Blood pressure 05/01/22 08/05/23 1 Day Ago History
tablet,extended release 24 hr ~04/30/22
ondansetron HCl 4 mg tablet 4 mg PO [id number] PRN nausea 11/03/22 08/05/23 Unknown History
sodium chloride 0.65 % nasal spray 1 sprays intranasal QIDPRN PRN dry 11/22/22 08/05/23 Unknown History
aerosol (Saline Nasal) nose/congestion
aspirin 81 mg chewable tablet 81 mg PO DAILY #30 tabs 11/25/22 08/05/23 Unknown Rx
acetaminophen 325 mg tablet 650 mg PO Q6HPRN PRN Mild Pain / 08/05/23 08/05/23 Unknown History
Temp > 101
acetaminophen 500 mg tablet 1,000 mg PO DAILY 08/05/23 08/05/23 Unknown History
benzonatate 100 mg capsule 200 mg PO Q8HPRN PRN cough 08/05/23 08/05/23 Unknown History
ciprofloxacin 0.3 %-dexamethasone 4 drp LEFT EAR BID 08/05/23 08/05/23 Unknown History
0.1 % ear drops,suspension
diphenhydramine HCl 25 mg capsule 25 mg PO Q8HPRN PRN itching 08/05/23 08/05/23 Unknown History
(Benadryl)
docusate sodium 100 mg capsule 100 mg PO [id number] PRN constipation 08/05/23 08/05/23 Unknown History
emollient combination no.119 1 applic topical BID 08/05/23 08/05/23 Unknown History
(Eucerin Advanced Repair topical
cream)
furosemide 40 mg tablet (Lasix) 20 mg PO DAILY 08/05/23 08/05/23 Unknown History
hydrocortisone 1 % topical cream 1 applic topical [id number] PRN 08/05/23 08/05/23 Unknown History
(Preparation H Hydrocortisone) hemorroids
insulin glargine 100 unit/mL 34 unit SC HS Diabetes 08/05/23 08/05/23 Unknown History
subcutaneous solution (Lantus
U-100 Insulin)
insulin lispro 100 unit/mL 0 - 7 sliding scale dose SC AC 08/05/23 08/05/23 Unknown History
subcutaneous pen (Admelog SoloStar
U-100 Insulin lispro)
insulin lispro 100 unit/mL 10 unit SC AC 08/05/23 08/05/23 Unknown History
subcutaneous pen (Admelog SoloStar
U-100 Insulin lispro)
ipratropium 0.5 mg-albuterol 3 mg 3 ml inhalation R BID 08/05/23 08/05/23 Unknown History
(2.5 mg base)/3 mL nebulization
soln
ipratropium 0.5 mg-albuterol 3 mg 3 ml inhalation R Q4HPRN PRN cough 08/05/23 08/05/23 Unknown History
(2.5 mg base)/3 mL nebulization
soln
ipratropium 0.5 mg-albuterol 3 mg 3 ml inhalation R QID 08/05/23 08/05/23 Unknown History
(2.5 mg base)/3 mL nebulization
soln
lidocaine 4 % topical patch 1 patch topical DAILY 08/05/23 08/05/23 Unknown History
loperamide 2 mg tablet (Imodium 2 mg PO Q8HPRN PRN diarrhea 08/05/23 08/05/23 Unknown History
A-D)
nystatin 100,000 unit/gram topical 1 applic topical BID 08/05/23 08/05/23 Unknown History
powder
ofloxacin 0.3 % eye drops 2 drp RIGHT EYE Q4 08/05/23 08/05/23 Unknown History
rosuvastatin 40 mg tablet 40 mg PO HS 08/05/23 08/05/23 Unknown History
saliva substitute combo no.9 15 ml PO Q8HPRN PRN dry mouth 08/05/23 08/05/23 Unknown History
(Biotene Dry Mouth Oral Rinse
mouthwash)
Review of Systems
-
Unable to Obtain full review of systems at this time due to: Acuity (unable to obtain as pt on BiPAP)
Vitals / Labs / Diagnostic Testing
Vital Signs
Temp Pulse Resp BP Pulse Ox
99.6 F 67 19 132/47 95
08/06/23 11:13 08/06/23 11:40 08/06/23 11:40 08/06/23 10:00 08/06/23 11:40
Lab Data
08/05/23 21:57
08/06/23 04:34
Laboratory Results
08/06/23
00:02
pH 7.23 L
pCO2 79 H*
pO2 367 H
HCO3 33.1 H
O2 Delivery Level
Microbiology
08/06/23 04:34 Nose Nasal Screen MRSA (PCR) - Final
MRSA not detected - performed by PCR methodology.
08/06/23 04:23 Urine Legionella Urinary Antigen - Final
Negative for Legionella pneumophila Serogroup 1 antigen.
A negative result does not rule out the possiblity of
Legionella infection due to other serogroups or species of
Legionella. Clinical correlation is recommended.
08/06/23 04:23 Urine Streptococcus pneumoniae Antigen (M - Final
Negative for Streptococcus pneumoniae antigen.
A negative result does not exclude infection with
Streptococcus pneumoniae. Clinical correlation is
recommended.
08/05/23 21:57 Nasal Swab Influenza Types A & B (SUYAPA) - Final
Negative for Influenza A & B, NAAT
Negative results must be combined with clinical observations
and patient history.
Nucleic Acid Amplification test (NAAT)performed on the
[employer] platform.
Diagnostic Testing:
Physical Exam
-
HEENT: Normocephalic and Anicteric
Cardiovascular: S1/S2 and Peripheral Edema (negative)
Respiratory: Wheeze (negative), Rales (negative), Rhonchi (negative), Non-Labored Respirations and Other (Reduced breath sounds bilaterally)
GI: Soft, Non Tender and Normal Bowel Sounds
Neurology: Other (Sleepy but easily arousable and following commands)
Skin: Warm and Dry
General: Respiratory Distress (negative), Comfortable and Other (morbidly obese)
Assessment
-
Assessment: 78-year-old morbidly obese female never smoker with a past medical history of asthma, hypothyroidism, hyperlipidemia, history of CVA, DM type II, AAS s/p TAVR and at risk for DASHAWN who presents from [facility] with shortness
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 EMS reported SpO2 75% on 4 L nasal cannula and patient normally is on room air at the senior living. Patient arrived to the ER on a nonrebreather and was confused but alert. Patient was febrile in the ER to 101.8 �F,
tachycardic to 104 bpm, breathing at 16-24 breaths/min, BP 138/66 and she was saturating 82% on room air which improved to 94% with 6 L/min. Labs showed acute on chronic hypercapnia with pH 7.23, pCO2 79 and pO2 367. Patient hyperkalemic to 5.7
with low sodium of 131, creatinine 1.2, troponin mildly elevated at 0.07, urinalysis negative for signs of UTI and COVID antigen also negative. Blood cultures were collected. CXR obtained showed mild cardiomegaly with increased vascular
interstitial markings suggestive of acute pulmonary edema. CT head obtained due to AMS showing no acute intracranial pathology. She was given Tylenol in the ER for her fever and admitted to the hospitalist service. Given her fever, antibiotics
were started and so was IV Lasix given concern for volume overload via her CXR. Due to her high pCO2 with AMS, she was started on BiPAP and now pulmonary consulted for additional management/recommendations.
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
Impression:
#Acute hypoxemic respiratory failure on BiPAP 10 bled with 15L/min - likely due to acute interstitial edema with suspected CAP in background of asthma
#Acute on chronic hypercapnic respiratory failure likely due to OHS
#Leukocytosis
#Chronic anemia
#Acute kidney injury with hyperkalemia
#Hyperglycemia
#Elevated troponin
#Transaminitis
#At risk for DASHAWN
Plan:
- Continue BiPAP and wean supplemental O2 flow rate as tolerated while maintaining SpO2 >90-94%
- Re-check blood gas to ensure improvement of pH and pCO2
- If pCO2 and pH are adequate, then can remove from BiPAP and resume with sleep and prn during day
- Broad spectrum Abx with cefepime/vanco --> can DC IV vanco given negative MRSA swab
- Follow up blood Cx X2; check sputum Cx if pt can reliably provide decent sample
- Diuresis - currently on 20mg IV lasix daily
- Trend sCr, UOP and serum K levels; treat for hyperkalemia with goal 4 - 5.2
- Continue DuoNebs QID with budesonide 0.5mg BID
- If patient develops worsening hypoxia then I will start systemic steroids given her history of asthma
- Trend troponin level until begins to downtrend
- Maintain SpO2 >90-94% with supplemental O2 as needed
- Incentive spirometer
- Replete electrolytes with K>4, Mg>2
- Maintain euglycemia with goal BG >100 and <180
- prn nebulized bronchodilators
- DVT ppx
Pulmonary service will continue to follow along.
Total time spent today was 75 minutes for this encounter. Time includes reviewing laboratory test/imaging results, reviewing pertinent medical records, obtaining and reviewing medical history, performing an appropriate exam, ordering medications,
tests and procedures. Time also includes documentation of this encounter, coordinating patient care and communicating with other healthcare professionals. Total time does not include separately billed tests performed on this date of service.
Data:
CXR 08-05-2023:
1. Mild cardiomegaly with evidence for previous TAVR.
2. Increased vascular interstitial markings suggesting acute interstitial cardiogenic pulmonary edema.
3. Multiple irregular shaped centrilobular nodular opacities in both lungs. Diagnostic possibilities are (1) multifocal alveolar pulmonary edema, (2) multifocal infection or (3) pulmonary metastatic disease.
4. Left-sided cardiac pacemaker in place.
CT Head 08-06-2023: No acute intracranial pathology.
TTE 06-30-2023:
Normal biventricular size and systolic function without regional wall motion
abnormality.
Mild concentric left ventricular hypertrophy.
Mild mitral stenosis with a mean gradient of 5 mmHg.
Well seated, normally functioning bioprosthetic aortic valve (s/p TAVR).
Mild pulmonary hypertension.
Compared to previous echo 11/07/22, there is now mild mitral stenosis. Pulmonary
pressure has decreased from 58mmHg on the prior study to 47mmHg today.
--- NOTE | 2023-08-06 09:23 | CON.CAR ---
Addendum entered and electronically signed by Shawn Castillo MD 08/06/23 12:31:
I saw and examined the patient.
The EDUCATION INSTRUCTOR's note was reviewed and I agree with the note.
78-year-old woman with history of TAVR 2021, pacemaker, heart failure with preserved ejection fraction, CVA, diabetes, hypertension and nocturnal O2 who presented with hypoxemia shortness of breath and fever up to 101.8 patient now admitted with
pneumonia. Chest x-ray reported increased interstitial markings with suspected CHF. Patient also with elevated proBNP. Patient currently sleeping but arousable. Appears somewhat lethargic. Breathing comfortable but is on increased O2 via nasal
cannula. No wheezes or rhonchi.
-Continue treatment for pneumonia as directed by the hospitalist.
-Suspect patient also has a component of CHF. Already given some IV diuretic yesterday. Patient will be given some additional diuretic. Continue to monitor closely.
-Monitor on telemetry
Original Note:
Consultation
Consultation Request
Date/Time Consultation Requested: 08/06/23214
Date/Time Consultation Performed: 08/06/23924
Requesting Provider: Gloria BARRY
Performing Provider: Camilla MAYERS for Dr. Castillo
Reason for Consultation: CHF
Medical History
-
Chief Complaint: fever, hypoxemia
History of Present Illness:
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
chart), SOB, and fever (101.8 here) at [place]. She is admitted and being treated for PNA. We are consulted due to concern for [id number] HFpEF in this setting- she is s/p a dose of IV Lasix. She is in no distress at the time of my assessment. She
is lethargic, but follows simple commands and answers some simple questions.
Past Medical History
Past Medical History: Arrhythmias (pacemaker), CHF, CVA, HTN, Hypercholesterolemia, Valvular Disease and Other (as above)
Social History
Living: [facility]
Family History
Family History: Reviewed & Not Pertinent
Allergies / Home Medications
Allergy/AdvReac Type Severity Reaction Status Date / Time
erythromycin base Allergy Anaphylaxis Verified 08/05/23 21:17
�Medication �Instructions �Recorded �Confirmed �Type
albuterol sulfate 90 mcg/actuation 2 puff inhalation R Q4HPRN PRN 05/01/22 08/05/23 History
aerosol inhaler sob/wheezing
fluticasone furoate 200 1 inh inhalation R DAILY 05/01/22 08/05/23 History
mcg-vilanterol 25 mcg/dose Lung/breathing issues
inhalation powder (Breo Ellipta)
levothyroxine 50 mcg tablet 50 mcg PO DAILY AT 0700 Thyroid 05/01/22 08/05/23 History
metoprolol succinate 50 mg 50 mg PO DAILY Blood pressure 05/01/22 08/05/23 History
tablet,extended release 24 hr
ondansetron HCl 4 mg tablet 4 mg PO [id number] PRN nausea 11/03/22 08/05/23 History
sodium chloride 0.65 % nasal spray 1 sprays intranasal QIDPRN PRN dry 11/22/22 08/05/23 History
aerosol (Saline Nasal) nose/congestion
aspirin 81 mg chewable tablet 81 mg PO DAILY #30 tabs 11/25/22 08/05/23 Rx
acetaminophen 325 mg tablet 650 mg PO Q6HPRN PRN Mild Pain / 08/05/23 08/05/23 History
Temp > 101
acetaminophen 500 mg tablet 1,000 mg PO DAILY 08/05/23 08/05/23 History
benzonatate 100 mg capsule 200 mg PO Q8HPRN PRN cough 08/05/23 08/05/23 History
ciprofloxacin 0.3 %-dexamethasone 4 drp LEFT EAR BID 08/05/23 08/05/23 History
0.1 % ear drops,suspension
diphenhydramine HCl 25 mg capsule 25 mg PO Q8HPRN PRN itching 08/05/23 08/05/23 History
(Benadryl)
docusate sodium 100 mg capsule 100 mg PO [id number] PRN constipation 08/05/23 08/05/23 History
emollient combination no.119 1 applic topical BID 08/05/23 08/05/23 History
(Eucerin Advanced Repair topical
cream)
furosemide 40 mg tablet (Lasix) 20 mg PO DAILY 08/05/23 08/05/23 History
hydrocortisone 1 % topical cream 1 applic topical [id number] PRN 08/05/23 08/05/23 History
(Preparation H Hydrocortisone) hemorroids
insulin glargine 100 unit/mL 34 unit SC HS Diabetes 08/05/23 08/05/23 History
subcutaneous solution (Lantus
U-100 Insulin)
insulin lispro 100 unit/mL 0 - 7 sliding scale dose SC AC 08/05/23 08/05/23 History
subcutaneous pen (Admelog SoloStar
U-100 Insulin lispro)
insulin lispro 100 unit/mL 10 unit SC AC 08/05/23 08/05/23 History
subcutaneous pen (Admelog SoloStar
U-100 Insulin lispro)
ipratropium 0.5 mg-albuterol 3 mg 3 ml inhalation R BID 08/05/23 08/05/23 History
(2.5 mg base)/3 mL nebulization
soln
ipratropium 0.5 mg-albuterol 3 mg 3 ml inhalation R Q4HPRN PRN cough 08/05/23 08/05/23 History
(2.5 mg base)/3 mL nebulization
soln
ipratropium 0.5 mg-albuterol 3 mg 3 ml inhalation R QID 08/05/23 08/05/23 History
(2.5 mg base)/3 mL nebulization
soln
lidocaine 4 % topical patch 1 patch topical DAILY 08/05/23 08/05/23 History
loperamide 2 mg tablet (Imodium 2 mg PO Q8HPRN PRN diarrhea 08/05/23 08/05/23 History
A-D)
nystatin 100,000 unit/gram topical 1 applic topical BID 08/05/23 08/05/23 History
powder
ofloxacin 0.3 % eye drops 2 drp RIGHT EYE Q4 08/05/23 08/05/23 History
rosuvastatin 40 mg tablet 40 mg PO HS 08/05/23 08/05/23 History
saliva substitute combo no.9 15 ml PO Q8HPRN PRN dry mouth 08/05/23 08/05/23 History
(Biotene Dry Mouth Oral Rinse
mouthwash)
Review of Systems
-
Unable to obtain full review of systems at this time due to: Other (patient lethargic, poor historian at this time)
History Source: Other (chart)
All other systems: Negative unless noted
Constitutional: Fever
Respiratory: Trouble Breathing
Neurological: Other (lethargic)
Physical Exam
Vital Signs
Temp Pulse Resp BP Pulse Ox
100.0 F 71 18 154/59 96
08/06/23 07:24 08/06/23 07:21 08/06/23 07:21 08/06/23 06:00 08/06/23 08:40
Lab Results
08/05/23 21:57
08/06/23 04:34
Troponin I 0.073 ng/ml H* 08/06/23 04:34
Physical Exam
General: Well Developed and No Apparent Distress
HEENT: Normocephalic and Anicteric
Respiratory: Other (diminished breath sounds, on high flow O2)
Cardiac: Regular Rhythm
Musculoskeletal: No Edema
Skin: Warm and Dry
Neuro: Other (lethargic, but opens eyes to voice, follows simple commands and answers simple questions)
Psych: Calm
Impression / Plan
-
Acute hypoxemic respiratory failure:
-on high-flow O2
-getting abx with suspected PNA (fever, elevated WBC)
-covid and flu are negative
-suspect some [id number]-[id number] HFpEF- monitor response to IV lasix
HFpEF: mild [id number]
-BNP elevated (but with abnormal renal function), weight up from previous
-s/p IV lasix- will add daily IV lasix- this requires intensive monitoring
-recent echo as below
Hx TAVR:
-stable by recent echo as below
Pacemaker:
-tele stable
-continue to monitor in device clinic as OP
Non-ischemic myocardial injury:
-in setting of acute illness as above
Data Reviewed
-
EKG: Tracing Personally Visualized and interpreted ( INSTRUMENT SETTER)
Radiology: Report Reviewed by me (CXR: Mild cardiomegaly with evidence for previous TAVR. Increased vascular interstitial markings suggesting acute interstitial cardiogenic pulmonary edema. Multiple irregular shaped centrilobular nodular opacities
in both lungs.)
Medical Tests (Nuc Med, Echo etc): Report Reviewed by me (06/30/23 Echo: Normal biventricular size and systolic function without regional wall motion abnormality. Mild concentric LVH. Mild mitral stenosis with a mean gradient of 5 mmHg. Well seated,
normally functioning bioprosthetic aortic valve (s/p TAVR). Mild pulmonary hypertension.)
Labs: Labs Reviewed by me
[2023-08-06 11:49] LABS: Lactic Acid 0.7 mmol/L (0.7-2.0)
[2023-08-06 11:50] LABS: Ammonia < 9 umol/L (9-30)
[2023-08-06 12:00] LABS: NT-proBNP 11500 pg/ml
[2023-08-06 12:04] LABS: Troponin I 0.079 ng/ml
[2023-08-06 12:06] LABS: Procalcitonin 0.87 ng/ml (0.0-0.25)
[2023-08-06 12:20] LABS: C-Reactive Protein > 270.00 mg/L (0.0-10.00)
--- NOTE | 2023-08-06 12:44 | PTCARENOTE ---
Pt presents as assessed. Aox1, drowsy and lethargic. To and from CT with this RN via stretcher. Desatting with care at times, increased to 15L MFNC with sats in the low to mid 90's. Transitioned to Bipap by RT, tolerating well at this time. Family
updated via phone, questions answered at length. Bed alarm in place for safety.
[2023-08-06 12:59] LABS: Glucose - Point of Care 186 mg/dl (70-99)
[2023-08-06] MEDS: LASIX 20 MG IV (13:38)
[2023-08-06] MEDS: NOVOLOG FLEXPEN-MODERATE RESISTANCE 1 UNITS SC ×2 (13:40→18:27)
[2023-08-06] MEDS: STERILE WATER FOR INJECTION 10 ML IV (13:40)
[2023-08-06 15:42] LABS: Venous Blood Gas B.E. 7.2 mmol/L (-4 to +4); Venous Blood Gas HCO3 35.6 mmol/L (22-27); Venous Blood Gas O2 Sat % 95.5 %; Venous Blood Gas pH 7.29 (7.32-7.43); Venous Blood Gas pO2 181 mmHg (30-50)
[2023-08-06 15:43] LABS: Venous Blood Gas pCO2 74 mmHg (35-48)
--- NOTE | 2023-08-06 16:16 | PTCARENOTE ---
Pt now awake and agitated; yelling at staff. RT at bedside and transitioned pt to 12L MFNC. Sating low to mid 90's. Family updated via phone. Critical lab result received on [facility], Dr. Robison notified via TT.
--- NOTE | 2023-08-06 16:54 | CM ---
Patient from [facility] with Dx Acute Hypoxemic / Hypercapnic Respiratory Failure, pneumonia, HF, TME. BiPAP. Receiving IV Abx, IV Lasix. NPO. ST Eval pending.
Spoke with Alvina Siu;
the patient resides there in LTC and is on an CA bed hold. She requires max assist of 1 for bed mobility, transfers, bathing, dressing & toileting.
The patient is able to self propel her w/c short distances.
Plan contact DIL/son prior to discharge.
Plan return to [facility] when medically ready.
[2023-08-06 18:36] LABS: Glucose - Point of Care 159 mg/dl (70-99)
[2023-08-06 19:50] LABS: Troponin I 0.062 ng/ml
[2023-08-06] MEDS: LANTUS 0.179999999999999993 UNITS SC (22:46)
[2023-08-06 22:58] LABS: Glucose - Point of Care 159 mg/dl (70-99)
[2023-08-07] VITALS (15 sets, daily range): BP systolic 117–165; BP diastolic 53–114; PULSE 2–71; BMI 45.8
[2023-08-07 00:10] LABS: Glucose - Point of Care 150 mg/dl (70-99)
[2023-08-07] MEDS: STERILE WATER FOR INJECTION 10 ML IV ×3 (00:53→23:07)
[2023-08-07] MEDS: NOVOLOG FLEXPEN-MODERATE RESISTANCE 1 UNITS SC ×4 (00:53→23:18)
[2023-08-07] MEDS: HEPARIN 5000 UNITS SC ×4 (00:54→23:07)
[2023-08-07] MEDS: MAXIPIME 2000 MG IV ×3 (00:54→23:07)
--- NOTE | 2023-08-07 01:27 | PTCARENOTE ---
Pt was on bipap and she yelled out saying that she was spitting up. Bipap removed and pt placed on Midflow NC at 15 L NC. POx 91-93%. She yells out when she is touched or turned or if she is covered with the blanket even though she says she is
cold. Initially at shift change, her son was visiting and she had vomited a small amount and had coughed up some mucous. Pt's son was conversing with her and she was oriented at times but then confused, so her mental status is variable. She does
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 Sputum is thick yellow. Pure-Wick is draining clear yellow urine large amounts.
[2023-08-07] MEDS: DUONEB 3 ML INH ×5 (04:58→20:02)
[2023-08-07 05:41] LABS: ALT (SGPT) 24 U/L (0-35); AST (SGOT) 38 U/L (14-36); Albumin 3.5 g/dl (3.5-5.0); Alkaline Phosphatase 159 U/L (38-126); Blood Urea Nitrogen 48 mg/dl (7-17); Calcium 8.8 mg/dl (8.4-10.2); Carbon Dioxide 33 mmol/L (22-30); Chloride 103 mmol/L (98-107); Estimated Creatinine Clearance 54 ml/min; Glucose 124 mg/dl (70-99); Magnesium 2.7 mg/dl (1.6-2.3); Potassium 5.7 mmol/L (3.5-5.1); Sodium 139 mmol/L (135-145); Total Bilirubin 0.4 mg/dl (0.2-1.3); Total Protein 7.1 g/dl (6.3-8.2); eGFR 57.31
[2023-08-07] MEDS: NOVOLOG FLEXPEN-MODERATE RESISTANCE SC (05:52)
--- NOTE | 2023-08-07 07:26 | W.PN.HOSP.TC ---
Today's Communication/Plan
-
IV Lasix. IV antibiotics. CT scan of the chest.
Assessment / Plan
Assessment / Plan
Physical exam:
General: Acutely ill
HEENT: Normocephalic, Atraumatic and Moist Mucous Membranes
Respiratory: Coarse crackles bilateral; Negative Wheezes or Rhonchi
Cardiac: Regular Rhythm and S1/S2
GI: Soft, Nontender and Nondistended
Musculoskeletal: No Clubbing, No Cyanosis. Bilateral edema in lower extremities present.
Neuro: Lethargic and Disoriented
A/P:
Acute on Chronic Hypoxemic / Hypercapnic Respiratory Failure-likely multifactorial in etiology pneumonia and heart failure, predominant culprits.
-Admitted to IMU
-Checked ABG
-Continue supplemental oxygen
-Consider BiPAP if mental status allow
-Consulted Pulmonary and appreciated their input
-CT scan of the chest today
-Updated daughter over the phone again today
Pneumonia, likely aspiration pneumonia or healthcare associated
-On IV antibiotics, cefepime and vancomycin
-Follow-up cultures
-Speech therapy swallowing eval
-Keep n.p.o. until SP
-CRP elevated more than 270, procalcitonin elevated 0.87
Acute on Chronic HFpEF
-On 20 mg of Lasix. Change IV Lasix to 20 mg IV twice a day.
-Discussed with cardiology today
-Consulted cardiology and appreciated their input
-Monitor Is&Os and Daily Weights
Toxic metabolic encephalopathy
-Obtained CT of the head on 08/05 and unremarkable
-Not sure if changing cefepime would have any impact but will reach out to pulmonary to see if he thinks is necessary.
-Continue to monitor mental status closely
Non-Ischemic Myocardial Injury secondary to CHF
-Continue to trend troponin as appropriate
Hyperkalemia
-Ordered repeat D50 and insulin and bicarbonate and calcium gluconate today.
-Repeated potassium back to normal
Acute Kidney Injury on CKD
-Monitor creatinine closely
-Check bladder scans
Diabetes Mellitus, Type II
-Half usual dose of Lantus until able to resume diet
-Monitor sugars and continue coverage insulin
Hyperlipidemia
-Hold statin
Hypothyroidism
-Resume levothyroxine when able to take oral meds
ASCVD / CVA
-Resume aspirin when able to take oral meds
Morbid Obesity due to Excess Calories
-Affects all aspects of care
DVT proph: SC Heparin
Code Status: Full Code
Total time spent on today's encounter was 52 minutes which included time spent in counseling the patient/family regarding diagnosis and treatment plan as listed above, goals of care, and symptom management. Case was discussed with nursing staff,
specialists, and care coordinators/case management. All labs and imaging personally reviewed by me. Remainder the time spent in detailed review of previous records, lab data, imaging, and other medical provider documentation.
Anticipated Discharge: > 48 hours
Subjective/Interval History
-
Date of Service: August 07, 2023
Patient still encephalopathic today. Still short of breath and on high requirements of oxygen with high flow oxygen as well. Afebrile today
Objective Data
-
Labs:
Laboratory Results
08/07/23 08/07/23
05:06 05:32
WBC Cancelled Pending
Hgb Cancelled Pending
Hct Cancelled Pending
Plt Count Cancelled Pending
Sodium 139
Potassium 5.7 H
Chloride 103
Carbon Dioxide 33 H
BUN 48 H
Creatinine 1.0
Glucose 124 H
Calcium 8.8
Total Bilirubin 0.4
AST 38 H
ALT 24
Alkaline Phosphatase 159 H
Vital Signs:
Vital Signs
Temp Pulse Resp BP Pulse Ox
98.6 F 65 17 127/87 92
08/07/23 03:47 08/07/23 06:15 08/07/23 06:15 08/07/23 06:03 08/07/23 06:15
I&O
08/06/23 08/07/23 08/08/23
06:59 06:59 06:59
Intake Total 200 / 200
Output Total 450 / 450 1550 / 1550
Balance -250 / -250 -1550 / -1550
[2023-08-07] MEDS: PULMICORT 0.5 MG INH ×2 (08:04→20:02)
--- NOTE | 2023-08-07 08:18 | W.PN.CD ---
Today's Communication / Plan
-
-s/p IV lasix- will increase to BID given such high oxygen requirement, this requires intensive monitoring
Impression / Plan
-
Acute hypoxemic respiratory failure:
-on high-flow O2
-getting abx with suspected PNA (fever, elevated WBC)
-covid and flu are negative
-suspect some [id number] HFpEF- monitor response to IV lasix
HFpEF: mild [id number]
-BNP elevated (but with abnormal renal function), weight much higher from previous (11/28/23 99.8 kg)
-Wt down to 113.5 from 116 on admission.
-s/p IV lasix- will increase to BID given such high oxygen requirement, this requires intensive monitoring
-recent echo as below
Hx TAVR:
-stable by recent echo as below
Pacemaker:
-tele stable
-continue to monitor in device clinic as OP
Non-ischemic myocardial injury:
-in setting of acute illness as above
TME:
-work up per medicine
Subjective:
she is not able to provide a history
Data:
TTE 06/30/23:
CONCLUSIONS
Normal biventricular size and systolic function without regional wall motion
abnormality.
Mild concentric left ventricular hypertrophy.
Mild mitral stenosis with a mean gradient of 5 mmHg.
Well seated, normally functioning bioprosthetic aortic valve (s/p TAVR).
Mild pulmonary hypertension.
Compared to previous echo 11/07/22, there is now mild mitral stenosis. Pulmonary
pressure has decreased from 58mmHg on the prior study to 47mmHg today
CXR: 08/05/23
1. Mild cardiomegaly with evidence for previous TAVR.
2. Increased vascular interstitial markings suggesting acute interstitial cardiogenic pulmonary edema.
3. Multiple irregular shaped centrilobular nodular opacities in both lungs. Diagnostic possibilities are (1) multifocal alveolar pulmonary edema, (2) multifocal infection or (3) pulmonary metastatic disease.
4. Left-sided cardiac pacemaker in place.
01/14/23:
IMPRESSION:
1. Multiple, bilateral pulmonary nodules as described. These show no significant interval increase in size as compared with the prior examination. There are numerous nodules which are partially obscured by atelectasis and edema on the prior study.
Given the number bilateral nodules, the findings are suspicious for metastatic disease.
2. Near complete resolution of interstitial edema. There is residual partial atelectasis of the left lower lobe. No other consolidation.
3. Small pericardial effusion, new as compared with prior study.
4. Subacute to chronic fracture anterior left fifth rib..
Physical Exam
Vital Signs/Labs
Vital Signs
Temp Pulse Resp BP Pulse Ox
98.6 F 70 21 127/87 98
08/07/23 03:47 08/07/23 08:04 08/07/23 08:04 08/07/23 06:03 08/07/23 08:04
08/06/23 08/07/23 08/08/23
06:59 06:59 06:59
Actual Weight 114.5 kg 113.5 kg
Magnesium 2.7 mg/dl (1.6-2.3) H 08/07/23 05:06
Triglycerides 163 mg/dl (10-149) H 08/06/23 04:34
LDL Cholesterol, Calc 54 mg/dl 08/06/23 04:34
VLDL Cholesterol, Calc 32 mg/dl (0-30) H 08/06/23 04:34
HDL Cholesterol 55 mg/dl 08/06/23 04:34
08/06/23
11:26
Cyf-C-Jartqfgxxik Pept 61151
LAB Results
08/05/23 08/06/23 08/06/23
21:57 04:34 11:26
Troponin I 0.070 H* 0.073 H* 0.079 H*
08/06/23
19:15
Troponin I 0.062 H*
Physical Exam
Constitutional: No acute distress
Cardiovascular: Rhythm & rate is regular and JVD pressure is normal
Respiratory: Respiratory effort normal, Rhonchi Absent and Wheeze Present
GI: Soft
Neuro/Psych: Other (awake but doesn't respond appropriately)
Data Reviewed
-
Date of Service: August 07, 2023
EKG: Other (Tele: Sinus with intermittent pacing)
Medical Tests (PFT, Pathology etc): Discussed with Physician (Will increase lasix to bid) and Discussed with Nurse (increase lasix to bid)
[2023-08-07] MEDS: CALCIUM GLUCONATE 100 IV (09:05)
[2023-08-07] MEDS: DEXTROSE 50% SYRINGE 25 GRAMS IV (09:06)
[2023-08-07] MEDS: NOVOLIN R 0.0500000000000000028 UNITS IV (09:07)
[2023-08-07] MEDS: LASIX 20 MG IV ×2 (09:09→16:07)
[2023-08-07] MEDS: SODIUM BICARBONATE 50 MEQ IV (09:09)
[2023-08-07] MEDS: FLUSH (NSS) 3 FLUSH IV (09:12)
[2023-08-07] MEDS: LASIX IV (09:23)
--- NOTE | 2023-08-07 09:41 | PTCARENOTE ---
Patient very confused. Unable to state name or date. Unable to follow commands. Patient NPO. Speech therapist will evaluate when patient able. All IV medications given as ordered. Patient on 12L midflow, [id number]% lungs diminished with
crackles at bases bilaterally. SR on monitor heart rates 70's.
[2023-08-07 10:51] LABS: % Basophils 0.6 % (0-2); % Eosinophils 0.1 % (0-6); % Immature Granulocytes 4.4 % (0-0.5); % Lymphocytes 12.5 % (20.5-51.1); % Neutrophils 74.4 % (42.2-75.2); Absolute Basophils 0.1 10^3/uL (0-0.2); Absolute Immature Granulocytes 0.4 10^3/uL (0-0.05); Absolute Lymphocytes 1.1 10^3/uL (1.2-3.4); Absolute Monocytes 0.7 10^3/uL (0.1-0.6); Absolute Neutrophils 6.5 10^3/uL (1.4-6.5); Hematocrit 33.5 % (37.0-47.0); Hemoglobin 9.7 g/dL (12.0-16.0); Mean Corpuscular Hgb 25.9 pg (27.0-31.0); Mean Corpuscular Volume 89.3 fL (81.0-99.0); Mean Platelet Volume 9.6 fL (7.4-10.4); Nucleated Red Blood Cells % 0.2 %; Platelet Count 224 10^3/uL (130-400); Red Blood Cell Count 3.75 10^6/uL (4.20-5.40); Red Cell Dist. Width 16.3 % (11.5-14.5); White Blood Cell Count 8.8 10^3/uL (4.8-10.8)
[2023-08-07 10:55] LABS: Venous Blood Gas B.E. 9.9 mmol/L (-4 to +4); Venous Blood Gas HCO3 36.1 mmol/L (22-27); Venous Blood Gas O2 Sat % 94.9 %; Venous Blood Gas pCO2 57 mmHg (35-48); Venous Blood Gas pH 7.41 (7.32-7.43); Venous Blood Gas pO2 169 mmHg (30-50)
--- NOTE | 2023-08-07 11:04 | W.PN.PUL3 ---
Today's Communication / Plan
-
Broad-spectrum antibiotic
Start systemic steroids
Maintain euglycemia especially while on steroids
BiPAP with sleep and as needed during the day
DuoNebs and budesonide, and while patient improves then can transition this to MDI inhalers as she takes Breo at home
Aspiration precautions
Assessment
-
Assessment: 78-year-old morbidly obese female never smoker with a past medical history of asthma, hypothyroidism, hyperlipidemia, history of CVA, DM type II, AAS s/p TAVR and at risk for DASHAWN who presents from [facility] with shortness
of breath and hypoxia FILM MASKER. EMS reported SpO2 75% on 4 L nasal cannula and patient normally is on room air at the care home. Patient arrived to the ER on a nonrebreather and was confused but alert. Patient was febrile in the ER to 101.8 �F,
tachycardic to 104 bpm, breathing at 16-24 breaths/min, BP 138/66 and she was saturating 82% on room air which improved to 94% with 6 L/min. Labs showed acute on chronic hypercapnia with pH 7.23, pCO2 79 and pO2 367. Patient hyperkalemic to 5.7
with low sodium of 131, creatinine 1.2, troponin mildly elevated at 0.07, urinalysis negative for signs of UTI and COVID antigen also negative. Blood cultures were collected. CXR obtained showed mild cardiomegaly with increased vascular
interstitial markings suggestive of acute pulmonary edema. CT head obtained due to AMS showing no acute intracranial pathology. She was given Tylenol in the ER for her fever and admitted to the hospitalist service. Given her fever, antibiotics
were started and so was IV Lasix given concern for volume overload via her CXR. Due to her high pCO2 with AMS, she was started on BiPAP and now pulmonary consulted for additional management/recommendations.
Chronic conditions FILM MASKER: Hypothyroidism, morbid obesity, hyperlipidemia, hypertension, history of asthma, history of CVA, DM type II, history of pneumonia, aortic stenosis s/p TAVR, at risk for sleep apnea, history of UTI
Impression:
#Acute hypoxemic respiratory failure on BiPAP 01/22 bled with 15L/min - due to CAP with interstitial edema in background of asthma
#Acute on chronic hypercapnic respiratory failure likely due to OHS in setting of above
#Leukocytosis
#Chronic anemia
#Acute kidney injury with hyperkalemia - hyperkalemia now resolved
#Hyperglycemia
#Elevated troponin - peaked at 0.079 on 08/06/2023
#Transaminitis
#Hx of multiple lung nodules - stable
#At risk for DASHAWN
Plan:
- Continue BiPAP during sleep and prn during day; wean supplemental O2 flow rate as tolerated while maintaining SpO2 >90-94%
- Check CT chest to assess stability of lung nodules, plus RN stating pt now having hemoptysis (non-massive) --> shows multifocal PNA
- Broad spectrum Abx with cefepime/vanco --> IV vanco DC'd given negative MRSA swab
- Follow up blood Cx X2; check sputum Cx if pt can reliably provide decent sample
- Diuresis - currently on 20mg IV lasix BID
- Trend sCr, UOP and serum K levels; treat for hyperkalemia with goal 4 - 5.2
- Continue DuoNebs QID with budesonide 0.5mg BID --> as she improves we can resume a LABA/ICS MDI
- Considering pt has developed worsening hypoxia, I will start systemic steroids given her history of asthma --> start solumedrol 40mg IV q12hr and wean as tolerated
- Maintain SpO2 >90-94% with supplemental O2 as needed
- Incentive spirometer encouraged
- Replete electrolytes with K>4, Mg>2
- Maintain euglycemia with goal BG >100 and <180
- prn nebulized bronchodilators
- DVT ppx
Pulmonary service will continue to follow along.
Total time spent today was 50 minutes for this encounter. Time includes reviewing laboratory test/imaging results, reviewing pertinent medical records, obtaining and reviewing medical history, performing an appropriate exam, ordering medications,
tests and procedures. Time also includes documentation of this encounter, coordinating patient care and communicating with other healthcare professionals. Total time does not include separately billed tests performed on this date of service.
Data:
CXR 08-05-2023:
1. Mild cardiomegaly with evidence for previous TAVR.
2. Increased vascular interstitial markings suggesting acute interstitial cardiogenic pulmonary edema.
3. Multiple irregular shaped centrilobular nodular opacities in both lungs. Diagnostic possibilities are (1) multifocal alveolar pulmonary edema, (2) multifocal infection or (3) pulmonary metastatic disease.
4. Left-sided cardiac pacemaker in place.
CT Chest without Contrast 08-07-2023: Limited study secondary to respiratory motion artifact.
1. Patchy airspace disease within both posterior lower lobes, posterior aspects of both upper lobes, and within the central aspect of the right middle lobe suspicious for multifocal pneumonia. No pleural effusions.
2. Again seen are couple of bilateral pulmonary nodules, including a stable 11 mm nodule within the medial right upper lobe and a 9 mm nodule within the left lower lobe. Additional nodule seen on the prior CT not well visualized on today's
examination secondary to motion artifact and airspace consolidation. Previously, these nodules were felt suspicious for metastatic disease. No gross hilar or mediastinal lymphadenopathy.
3. Moderate cardiomegaly.
CT Head 08-06-2023: No acute intracranial pathology.
TTE 06-30-2023:
Normal biventricular size and systolic function without regional wall motion
abnormality.
Mild concentric left ventricular hypertrophy.
Mild mitral stenosis with a mean gradient of 5 mmHg.
Well seated, normally functioning bioprosthetic aortic valve (s/p TAVR).
Mild pulmonary hypertension.
Compared to previous echo 11/07/22, there is now mild mitral stenosis. Pulmonary
pressure has decreased from 58mmHg on the prior study to 47mmHg today.
Subjective Data
-
Date of Service:
Date of Service: August 07, 2023
Chief Complaint: Pulmonary Follow Up
Subjective:
Patient seen today at bedside. She is saturating 95% on 15 L/min midflow nasal cannula. She is awake, albeit sleepy, and says she feels 'like shit.' BP 136/63 and heart rate 72. She is unable to tell me if she is short of breath, although she is
breathing comfortably. She denies chest pain, fevers or chills.
Review of Systems
General: Other (Negative unless mentioned above)
Objective Data
Data Reviewed
Vital Signs / I&O / Oxygen:
Vital Signs
Temp Pulse Resp BP Pulse Ox
98.6 F 70 21 127/87 98
08/07/23 03:47 08/07/23 08:04 08/07/23 08:04 08/07/23 06:03 08/07/23 08:04
Intake and Output
08/06/23 08/07/23 08/08/23
06:59 06:59 06:59
Intake Total 200 / 200
Output Total 450 / 450 1550 / 1550
Balance -250 / -250 -1550 / -1550
SaO2 98
Nasal Cannula flow liters per 6
minute
Physical Exam
General: Comfortable
HEENT: Normocephalic and Anicteric
Cardiovascular: Peripheral Edema (negative) and Other (normal rate)
Respiratory: Wheeze (negative), Crackles (negative), Rhonchi (bilaterally) and Non-Labored Respirations
GI: Soft and Other (abdominal obesity)
Neurology: Awake and Other (sleepy but answering my questions appropriately)
Skin: Warm and Dry
Labs/Micro/Reports
Lab Data
08/07/23 10:41
Microbiology
08/05/23 22:55 Blood/Venous Blood Culture - Preliminary
No Growth in 24 hours- Final report to follow
08/05/23 21:57 Blood/Venous Blood Culture - Preliminary
No Growth in 24 hours- Final report to follow
08/06/23 04:34 Nose Nasal Screen MRSA (PCR) - Final
MRSA not detected - performed by PCR methodology.
08/06/23 04:23 Urine Legionella Urinary Antigen - Final
Negative for Legionella pneumophila Serogroup 1 antigen.
A negative result does not rule out the possiblity of
Legionella infection due to other serogroups or species of
Legionella. Clinical correlation is recommended.
08/06/23 04:23 Urine Streptococcus pneumoniae Antigen (M - Final
Negative for Streptococcus pneumoniae antigen.
A negative result does not exclude infection with
Streptococcus pneumoniae. Clinical correlation is
recommended.
08/05/23 21:57 Nasal Swab Influenza Types A & B (SUYAPA) - Final
Negative for Influenza A & B, NAAT
Negative results must be combined with clinical observations
and patient history.
Nucleic Acid Amplification test (NAAT)performed on the
[employer]ala platform.
[2023-08-07] MEDS: DUONEB INH (11:17)
--- NOTE | 2023-08-07 11:37 | PTCARENOTE ---
Patient back on unit. CT of lungs obtained.
[2023-08-07 12:00] LABS: Blood Urea Nitrogen 44 mg/dl (7-17); Calcium 9.5 mg/dl (8.4-10.2); Carbon Dioxide 36 mmol/L (22-30); Chloride 101 mmol/L (98-107); Estimated Creatinine Clearance 54 ml/min; Glucose 183 mg/dl (70-99); Potassium 4.9 mmol/L (3.5-5.1); Sodium 140 mmol/L (135-145); eGFR 57.31
[2023-08-07 12:12] LABS: Glucose - Point of Care 179 mg/dl (70-99)
[2023-08-07] MEDS: ZOFRAN 4 MG IV (12:28)
--- NOTE | 2023-08-07 14:22 | PTCARENOTE ---
Patient vomited about 100 mls bile. notified. Order obtained for IV zofran. Patient denies any nausea at this time. Appears more comfortable. Continues on 15L midflow. Will monitor.
[2023-08-07] MEDS: FLUSH (NSS) 1 FLUSH IV (16:09)
--- NOTE | 2023-08-07 16:58 | CM ---
Patient from [facility] with Dx Acute Hypoxemic / Hypercapnic Respiratory Failure, pneumonia, HF, TME. O2 [address] today. Receiving IV Abx, IV Lasix. NPO. ST Eval pending.
SNF referral for return to [facility] placed in [facility].
Plan contact DIL/son prior to discharge.
Plan return to [facility] when medically ready.
[2023-08-07] MEDS: SOLU-MEDROL PF 40 MG IV (18:04)
[2023-08-07 18:08] LABS: Glucose - Point of Care 163 mg/dl (70-99)
[2023-08-07] MEDS: LANTUS 0.179999999999999993 UNITS SC (23:18)
[2023-08-07 23:27] LABS: Glucose - Point of Care 188 mg/dl (70-99)
[2023-08-08] VITALS (11 sets, daily range): BP systolic 140–177; BP diastolic 63–95; PULSE 2–73; BMI 43.7
--- NOTE | 2023-08-08 04:30 | PTCARENOTE ---
Assume care from AM RN. no c/o pain. AAOX1, anxious, drowsy and uncooperative at times. NSR to A-Paced in the monitor. +1 of BLLE edema. Pt remains in 12-15 L O2 MF. SaO2 91-95%. Lung sounds are course with crackles at the bases. Productive cough
with a esparza thick mucus. tachypneic and shallow breathing. Pt only wore the BIPAP for 1hr and refused it. Abd round and obese. Purewick in place. Q 2 turn. Oral care provide. Pt give a bed bath. Call colin within reach.
[2023-08-08 05:37] LABS: % Basophils 0.8 % (0-2); % Lymphocytes 11.9 % (20.5-51.1); % Monocytes 2.5 % (1.7-9.3); % Neutrophils 77.8 % (42.2-75.2); Absolute Basophils 0.1 10^3/uL (0-0.2); Absolute Immature Granulocytes 0.5 10^3/uL (0-0.05); Absolute Lymphocytes 0.9 10^3/uL (1.2-3.4); Absolute Monocytes 0.2 10^3/uL (0.1-0.6); Hematocrit 34.5 % (37.0-47.0); Hemoglobin 9.8 g/dL (12.0-16.0); Mean Corp Hgb Conc. 28.4 g/dL (33.0-37.0); Mean Corpuscular Hgb 25.5 pg (27.0-31.0); Mean Corpuscular Volume 89.8 fL (81.0-99.0); Nucleated Red Blood Cells % 0.4 %; Platelet Count 253 10^3/uL (130-400); Red Blood Cell Count 3.84 10^6/uL (4.20-5.40); White Blood Cell Count 7.7 10^3/uL (4.8-10.8)
[2023-08-08] MEDS: NOVOLOG FLEXPEN-MODERATE RESISTANCE 3 UNITS SC ×2 (05:49→12:04)
[2023-08-08 05:53] LABS: Venous Blood Gas HCO3 41.8 mmol/L (22-27); Venous Blood Gas O2 Sat % 95.5 %; Venous Blood Gas pCO2 63 mmHg (35-48); Venous Blood Gas pH 7.43 (7.32-7.43); Venous Blood Gas pO2 212 mmHg (30-50)
[2023-08-08 05:55] LABS: Glucose - Point of Care 236 mg/dl (70-99)
[2023-08-08 06:00] LABS: Blood Urea Nitrogen 45 mg/dl (7-17); Calcium 9.1 mg/dl (8.4-10.2); Carbon Dioxide 39 mmol/L (22-30); Chloride 99 mmol/L (98-107); Estimated Creatinine Clearance 59 ml/min; Glucose 206 mg/dl (70-99); Potassium 5.5 mmol/L (3.5-5.1); Sodium 141 mmol/L (135-145); eGFR > 60.00
[2023-08-08] MEDS: DEXTROSE 50% SYRINGE 25 GRAMS IV (07:15)
[2023-08-08] MEDS: NOVOLIN R 0.0500000000000000028 UNITS IV (07:16)
[2023-08-08] MEDS: HEPARIN 5000 UNITS SC ×2 (07:26→16:35)
[2023-08-08] MEDS: LASIX 20 MG IV (07:26)
[2023-08-08] MEDS: SOLU-MEDROL PF 40 MG IV ×2 (07:28→20:50)
[2023-08-08 07:34] LABS: Glucose - Point of Care 210 mg/dl (70-99)
--- NOTE | 2023-08-08 07:45 | W.PN.CD ---
Today's Communication / Plan
-
Appears O2 requirements have decreased.
Nursing reports some issues with mental status and cooperation compared to prior admits.
Continue treatment of pneumonia and optimization of pulmonary statusas directed by primary team and pulmonary.
Can continue with IV Lasix with close monitoring of renal function. Patient still with declining weights and output greater than input. Renal function appears stable. Renal profile with increased bicarb up to 39. May consider Change Lasix to
daily dosing
Treatment of hyperkalemia as directed by primary team
Impression / Plan
-
Acute hypoxemic respiratory failure:
-Patient was on high-flow O2. O2 reduced.
-Elevated pCO2. Treatment directed by pulmonary.
-getting abx with suspected PNA (fever, elevated WBC)
-covid and flu are negative
-Along with the above continuing diuresis. Monitor renal function
HFpEF: mild [id number]
-BNP elevated (but with abnormal renal function), weight much higher from previous (11/28/23 99.8 kg)
-Wt down to 108 from 116 on admission.
-Continue IV Lasix and monitor renal function
-recent echo as below
Hx TAVR:
-stable by recent echo as below
Pacemaker:
-tele stable
-continue to monitor in device clinic as OP
Non-ischemic myocardial injury:
-in setting of acute illness as above
TME:
-work up per medicine
Subjective:
she is not able to provide a history
Data:
TTE 06/30/23:
CONCLUSIONS
Normal biventricular size and systolic function without regional wall motion
abnormality.
Mild concentric left ventricular hypertrophy.
Mild mitral stenosis with a mean gradient of 5 mmHg.
Well seated, normally functioning bioprosthetic aortic valve (s/p TAVR).
Mild pulmonary hypertension.
Compared to previous echo 11/07/22, there is now mild mitral stenosis. Pulmonary
pressure has decreased from 58mmHg on the prior study to 47mmHg today
CXR: 08/05/23
1. Mild cardiomegaly with evidence for previous TAVR.
2. Increased vascular interstitial markings suggesting acute interstitial cardiogenic pulmonary edema.
3. Multiple irregular shaped centrilobular nodular opacities in both lungs. Diagnostic possibilities are (1) multifocal alveolar pulmonary edema, (2) multifocal infection or (3) pulmonary metastatic disease.
4. Left-sided cardiac pacemaker in place.
01/14/23:
IMPRESSION:
1. Multiple, bilateral pulmonary nodules as described. These show no significant interval increase in size as compared with the prior examination. There are numerous nodules which are partially obscured by atelectasis and edema on the prior study.
Given the number bilateral nodules, the findings are suspicious for metastatic disease.
2. Near complete resolution of interstitial edema. There is residual partial atelectasis of the left lower lobe. No other consolidation.
3. Small pericardial effusion, new as compared with prior study.
4. Subacute to chronic fracture anterior left fifth rib..
Physical Exam
Vital Signs/Labs
Vital Signs
Temp Pulse Resp BP Pulse Ox
98.1 F 68 17 140/90 95
08/08/23 03:07 08/08/23 00:00 08/08/23 00:00 08/08/23 07:26 08/08/23 00:00
08/07/23 08/08/23 08/09/23
06:59 06:59 06:59
Actual Weight 113.5 kg 108.2 kg
08/08/23 03:59
08/08/23 03:59
Magnesium 2.7 mg/dl (1.6-2.3) H 08/07/23 05:06
Triglycerides 163 mg/dl (10-149) H 08/06/23 04:34
LDL Cholesterol, Calc 54 mg/dl 08/06/23 04:34
VLDL Cholesterol, Calc 32 mg/dl (0-30) H 08/06/23 04:34
HDL Cholesterol 55 mg/dl 08/06/23 04:34
08/06/23
11:26
Wxd-K-Lalcepfaqub Pept 60046
LAB Results
08/05/23 08/06/23 08/06/23
21:57 04:34 11:26
Troponin I 0.070 H* 0.073 H* 0.079 H*
08/06/23
19:15
Troponin I 0.062 H*
Physical Exam
Constitutional: Other (More alert than when she was seen 2 days ago)
EENT: Anicteric
Cardiovascular: Rhythm & rate is regular
Respiratory: Wheeze Absent and Other (Decreased breath sounds at bases)
GI: Soft
Neuro/Psych: Alert
Data Reviewed
-
Date of Service: August 08, 2023
Medical Decision Making: Reviewed Test Results and Review of Case with other Provider (Reviewed issues with nursing staff)
EKG: Report Reviewed by me
Echo: Report Reviewed by me
Medical Tests (PFT, Pathology etc): Report Reviewed by me
Labs: Labs Reviewed by me
[2023-08-08] MEDS: DUONEB 3 ML INH ×4 (08:09→20:11)
[2023-08-08] MEDS: PULMICORT 0.5 MG INH ×2 (08:09→20:11)
[2023-08-08] MEDS: LASIX IV (08:33)
[2023-08-08 08:34] LABS: Normal RBC Morphology No
--- NOTE | 2023-08-08 09:00 | PTCARENOTE ---
Patient received from plant operator/shift supervisor. Patient resting comfortably in bed. AAO mostly to self, VSS. Patient a little confused wanting to speak with family member, plant operator/shift supervisor called for patient. Patients K low again this AM, see JUN. No complaints
of pain. Patient refused BiPAP overnight. Continuing NPO until able to swallow fluids, food, and medications safely. Call colin in reach.
--- NOTE | 2023-08-08 09:54 | W.PN.HOSP.TC ---
Today's Communication/Plan
-
see bold
Assessment / Plan
Assessment / Plan
Gen: NAD, awake and alert
Eyes: EOMI, PERRLA, no scleral icterus.
Neck: supple.
CV: RRR with occasional premature beat, +S1/S2, no m/r/g.
Resp: CTAB anteriorly, no rales, wheezes, or rhonchi.
Abd: +BS, soft, NT, ND
Skin: No rashes.
Neuro: CN 2-12 intact, non-focal.
Psych: Normal mood and affect.
08/05/23 22:55 Blood/Venous Blood Culture - Preliminary
No Growth in 48 hours- Final report to follow
08/05/23 21:57 Blood/Venous Blood Culture - Preliminary
No Growth in 48 hours- Final report to follow
08/06/23 04:34 Nose Nasal Screen MRSA (PCR) - Final
MRSA not detected - performed by PCR methodology.
08/06/23 04:23 Urine Legionella Urinary Antigen - Final
Negative for Legionella pneumophila Serogroup 1 antigen.
A negative result does not rule out the possiblity of
Legionella infection due to other serogroups or species of
Legionella. Clinical correlation is recommended.
08/06/23 04:23 Urine Streptococcus pneumoniae Antigen (M - Final
Negative for Streptococcus pneumoniae antigen.
A negative result does not exclude infection with
Streptococcus pneumoniae. Clinical correlation is
recommended.
08/05/23 21:57 Nasal Swab Influenza Types A & B (SUYAPA) - Final
Negative for Influenza A & B, NAAT
Negative results must be combined with clinical observations
and patient history.
Nucleic Acid Amplification test (NAAT)performed on the
[employer] platform.
CT chest 08/07/23:
1. Limited study secondary to respiratory motion artifact.
2. Patchy airspace disease within both posterior lower lobes, posterior aspects of both upper lobes, and within the central aspect of the right middle lobe suspicious for multifocal pneumonia. No pleural effusions.
3. Again seen are couple of bilateral pulmonary nodules, including a stable 11 mm nodule within the medial right upper lobe and a 9 mm nodule within the left lower lobe. Additional nodule seen on the prior CT not well visualized on today's
examination secondary to motion artifact and airspace consolidation. Previously, these nodules were felt suspicious for metastatic disease. No gross hilar or mediastinal lymphadenopathy.
4. Moderate cardiomegaly.
CT brain: No acute intracranial pathology.
Acute on Chronic Hypoxemic and Hypercapnic Respiratory Failure:
-likely multifactorial and due to pneumonia (possibly aspiration) and Acute on Chronic HFpEF in the setting of OHS due to morbid obesity due to excess calories
-Acute metabolic encephalopathy due to above
-overnight pt continually was removing her BiPAP. Currently on 6L NC O2.
-pulm/cards following
-cont Cefepime/IV Lasix
-steroids started
Other problems:
Morbid obesity due to excess calories, BMI 43.6
Elevated troponin due to Non-Ischemic Myocardial Injury due to CHF and PNA
SUMMER, resolved
Hyperkalemia
DM2: Increase Lantus to 26U, SSI/accuchecks
Hyperlipidemia: resume statin when able to take PO
Hypothyroidism resume levothyroxine when able to take PO
CAD: resume ASA/BB/statin when able to take PO
h/o CVA: resume ASA/statin when able to take PO
FULL/Heparin
Total time spent on today's encounter was 50 minutes which included time spent in counseling the patient/family regarding diagnosis and treatment plan as listed above, goals of care, and symptom management. Case was discussed with nursing staff,
specialists, and care coordinators/case management. All labs and imaging personally reviewed by me. Remainder the time spent in detailed review of previous records, lab data, imaging, and other medical provider documentation.
Anticipated Discharge: > 48 hours
Subjective/Interval History
-
Date of Service: August 08, 2023
Patient does not offer acute complaints. Denies shortness of breath.
Objective Data
-
Labs:
Laboratory Results
08/08/23
03:59
WBC 7.7
Hgb 9.8 L
Hct 34.5 L
Plt Count 253
Sodium 141
Potassium 5.5 H
Chloride 99
Carbon Dioxide 39 H
BUN 45 H
Creatinine 0.9
Glucose 206 H
Calcium 9.1
Vital Signs:
Vital Signs
Temp Pulse Resp BP Pulse Ox
98.1 F 74 19 140/90 97
08/08/23 03:07 08/08/23 08:14 08/08/23 08:14 08/08/23 07:26 08/08/23 08:14
I&O
08/07/23 08/08/23 08/09/23
06:59 06:59 06:59
Output Total 1550 / 1550 2400 / 2400
Balance -1550 / -1550 -2400 / -2400
[2023-08-08] MEDS: STERILE WATER FOR INJECTION 10 ML IV (11:58)
[2023-08-08] MEDS: MAXIPIME 2000 MG IV (11:58)
[2023-08-08 12:15] LABS: Glucose - Point of Care 229 mg/dl (70-99)
--- NOTE | 2023-08-08 12:31 | W.PN.PUL3 ---
Today's Communication / Plan
-
O2
Asp precs
Atbs
CS
BDs
Assessment
-
Assessment: 78-year-old morbidly obese female never smoker with a past medical history of asthma, hypothyroidism, hyperlipidemia, history of CVA, DM type II, AAS s/p TAVR and at risk for DASHAWN who presents from [facility] with shortness
of breath and hypoxia [employer]. EMS reported SpO2 75% on 4 L nasal cannula and patient normally is on room air at the senior care. Patient arrived to the ER on a nonrebreather and was confused but alert. Patient was febrile in the ER to 101.8 �F,
tachycardic to 104 bpm, breathing at 16-24 breaths/min, BP 138/66 and she was saturating 82% on room air which improved to 94% with 6 L/min. Labs showed acute on chronic hypercapnia with pH 7.23, pCO2 79 and pO2 367. Patient hyperkalemic to 5.7
with low sodium of 131, creatinine 1.2, troponin mildly elevated at 0.07, urinalysis negative for signs of UTI and COVID antigen also negative. Blood cultures were collected. CXR obtained showed mild cardiomegaly with increased vascular
interstitial markings suggestive of acute pulmonary edema. CT head obtained due to AMS showing no acute intracranial pathology. She was given Tylenol in the ER for her fever and admitted to the hospitalist service. Given her fever, antibiotics
were started and so was IV Lasix given concern for volume overload via her CXR. Due to her high pCO2 with AMS, she was started on BiPAP and now pulmonary consulted for additional management/recommendations.
Chronic conditions [employer]: Hypothyroidism, morbid obesity, hyperlipidemia, hypertension, history of asthma, history of CVA, DM type II, history of pneumonia, aortic stenosis s/p TAVR, at risk for sleep apnea, history of UTI
Impression:
#Acute hypoxemic respiratory failure on BiPAP 10/5 bled with 15L/min - due to CAP with interstitial edema in background of asthma
Pneumonia
#Acute on chronic hypercapnic respiratory failure likely due to OHS in setting of above
#Leukocytosis
#Chronic anemia
#Acute kidney injury with hyperkalemia - hyperkalemia now resolved
#Hyperglycemia
#Elevated troponin - peaked at 0.079 on 08/06/2023
#Transaminitis
#Hx of multiple lung nodules - stable
#At risk for DASHAWN
Plan:
- Refusing BiPAP 10/5 (O2 15L)
Confused and mildly agitated during visit, not in resp distress
O2 protocol to continue
- Check CT chest to assess stability of lung nodules, multifocal PNA
- Broad spectrum Abx with cefepime/vanco --> IV vanco DC'd given negative MRSA swab
- Follow up blood Cx X2; could not provide sputum sample for cx (confusion, agitation)
- Diuresis - currently on 20mg IV lasix BID
- Trend sCr, UOP and serum K levels; treat for hyperkalemia with goal 4 - 5.2
- Continue DuoNebs QID with budesonide 0.5mg BID --> as she improves we can resume a LABA/ICS MDI
- Considering pt has developed worsening hypoxia, and given her history of asthma --> started solumedrol 40mg IV q12hr and wean as tolerated (already confused and agitated prior to initiation of CS)
- Maintain SpO2 >90-94% with supplemental O2 as needed
- Incentive spirometer encouraged
- Replete electrolytes with K>4, Mg>2
- Maintain euglycemia with goal BG >100 and <180
- prn nebulized bronchodilators
- DVT ppx
Data:
CXR 08-05-2023:
1. Mild cardiomegaly with evidence for previous TAVR.
2. Increased vascular interstitial markings suggesting acute interstitial cardiogenic pulmonary edema.
3. Multiple irregular shaped centrilobular nodular opacities in both lungs. Diagnostic possibilities are (1) multifocal alveolar pulmonary edema, (2) multifocal infection or (3) pulmonary metastatic disease.
4. Left-sided cardiac pacemaker in place.
CT Chest without Contrast 08-07-2023: Limited study secondary to respiratory motion artifact.
1. Patchy airspace disease within both posterior lower lobes, posterior aspects of both upper lobes, and within the central aspect of the right middle lobe suspicious for multifocal pneumonia. No pleural effusions.
2. Again seen are couple of bilateral pulmonary nodules, including a stable 11 mm nodule within the medial right upper lobe and a 9 mm nodule within the left lower lobe. Additional nodule seen on the prior CT not well visualized on today's
examination secondary to motion artifact and airspace consolidation. Previously, these nodules were felt suspicious for metastatic disease. No gross hilar or mediastinal lymphadenopathy.
3. Moderate cardiomegaly.
CT Head 08-06-2023: No acute intracranial pathology.
TTE 06-30-2023:
Normal biventricular size and systolic function without regional wall motion
abnormality.
Mild concentric left ventricular hypertrophy.
Mild mitral stenosis with a mean gradient of 5 mmHg.
Well seated, normally functioning bioprosthetic aortic valve (s/p TAVR).
Mild pulmonary hypertension.
Compared to previous echo 11/07/22, there is now mild mitral stenosis. Pulmonary
pressure has decreased from 58mmHg on the prior study to 47mmHg today.
Subjective Data
-
Date of Service:
Date of Service: August 08, 2023
Chief Complaint: Pulmonary Follow Up
Subjective:
Confused, agitated
Review of Systems
General: Other (Confused)
Objective Data
Data Reviewed
Vital Signs / I&O / Oxygen:
Vital Signs
Temp Pulse Resp BP Pulse Ox
98.2 F 65 20 140/90 97
08/08/23 11:14 08/08/23 11:23 08/08/23 11:23 08/08/23 07:26 08/08/23 11:23
Intake and Output
08/07/23 08/08/23 08/09/23
06:59 06:59 06:59
Output Total 1550 / 1550 2400 / 2400 500 / 500
Balance -1550 / -1550 -2400 / -2400 -500 / -500
SaO2 97
Nasal Cannula flow liters per 6
minute
Physical Exam
General: Other (Mildly agitated)
HEENT: Normocephalic, Anicteric and Moist Mucous Membranes
Cardiovascular: Regular Rhythm, Peripheral Edema (negative) and Other (normal rate)
Respiratory: Wheeze (negative), Crackles (negative), Rhonchi (bilaterally), Non-Labored Respirations and Stridor (n)
GI: Soft, Non Distended, Non Tender and Other (abdominal obesity)
Neurology: Awake and Other (Confused, agitated)
Skin: Warm and Dry
Labs/Micro/Reports
Lab Data
08/08/23 03:59
08/08/23 03:59
Microbiology
08/05/23 22:55 Blood/Venous Blood Culture - Preliminary
No Growth in 48 hours- Final report to follow
08/05/23 21:57 Blood/Venous Blood Culture - Preliminary
No Growth in 48 hours- Final report to follow
08/06/23 04:34 Nose Nasal Screen MRSA (PCR) - Final
MRSA not detected - performed by PCR methodology.
08/06/23 04:23 Urine Legionella Urinary Antigen - Final
Negative for Legionella pneumophila Serogroup 1 antigen.
A negative result does not rule out the possiblity of
Legionella infection due to other serogroups or species of
Legionella. Clinical correlation is recommended.
08/06/23 04:23 Urine Streptococcus pneumoniae Antigen (M - Final
Negative for Streptococcus pneumoniae antigen.
A negative result does not exclude infection with
Streptococcus pneumoniae. Clinical correlation is
recommended.
08/05/23 21:57 Nasal Swab Influenza Types A & B (SUYAPA) - Final
Negative for Influenza A & B, NAAT
Negative results must be combined with clinical observations
and patient history.
Nucleic Acid Amplification test (NAAT)performed on the
[employer] platform.
[2023-08-08 12:49] LABS: Glucose - Point of Care 237 mg/dl (70-99)
--- NOTE | 2023-08-08 14:54 | PTOTSP ---
SPEECH THERAPY SWALLOW EVALUATION:
Clinical signs of oropharyngeal dysphagia, likely chronic related to history of CVA and acutely exacerbated by current AMS/TME. Patient is at high risk for aspiration and related complications given poor awareness of bolus in oral cavity and
confusion. Pt with history of VSE 8 months ago which revealed grossly functional oropharyngeal swallow. Now admitted with pneumonia, unknown if aspiration related. Recommend strict NPO given high risk for aspiration due to confusion/AMS. May need
temporary alternate means for nutrition/medication/hydration. Speech therapy to follow, re-assess in 24 hours, determine readiness for additional textures/trials pending mental status, determine indication/readiness for repeat VSE if indicated, and
provide continued diagnostic swallow therapy as appropriate.
RECOMMEND:
1) strict NPO
2) May need temporary alternate means for nutrition/medication/hydration
3) Speech therapy to follow, re-assess in 24 hours, determine readiness for additional textures/trials pending mental status, determine indication/readiness for repeat VSE if indicated, and provide continued diagnostic swallow therapy as appropriate
[2023-08-08] MEDS: KAYEXALATE SUSPENSION 30 GRAMS RECTAL (15:30)
[2023-08-08 18:07] LABS: Glucose - Point of Care 251 mg/dl (70-99)
[2023-08-08] MEDS: NOVOLOG FLEXPEN-MODERATE RESISTANCE 5 UNITS SC (18:12)
--- NOTE | 2023-08-08 21:18 | PTCARENOTE ---
Received pt at change of shift. Currently on 10 L MF with pulse ox 95%. BP elevated at 167/93 but stable; NSR on monitor; lethargic and AAOx1 to self. Pt very upset this evening stating she 'just want to go to sleep forever'. Pt states she
doesn't feel well but is unable to tell this RN what is wrong. Son on the phone speaking with her to help calm her down. Resting in bed with call colin in reach.
[2023-08-09] VITALS (12 sets, daily range): BP systolic 126–172; BP diastolic 60–105; PULSE 2–76; BMI 42.8
[2023-08-09 00:04] LABS: Glucose - Point of Care 240 mg/dl (70-99)
[2023-08-09] MEDS: HEPARIN 5000 UNITS SC ×3 (00:40→16:35)
[2023-08-09] MEDS: STERILE WATER FOR INJECTION 10 ML IV ×2 (00:40→12:31)
[2023-08-09] MEDS: MAXIPIME 2000 MG IV ×2 (00:40→12:32)
[2023-08-09] MEDS: LANTUS 0.260000000000000009 UNITS SC (00:41)
[2023-08-09] MEDS: NOVOLOG FLEXPEN-MODERATE RESISTANCE 3 UNITS SC ×4 (00:41→17:09)
[2023-08-09 06:04] LABS: Glucose - Point of Care 227 mg/dl (70-99)
[2023-08-09] MEDS: DUONEB 3 ML INH ×3 (07:26→20:01)
[2023-08-09] MEDS: PULMICORT 0.5 MG INH ×2 (07:26→20:01)
--- NOTE | 2023-08-09 07:45 | W.PN.CD ---
Today's Communication / Plan
-
Respiratory status stable overnight while on BiPAP. Patient now on 8 L nasal cannula. Comfortable.
Weights continue to trend down and patient tolerating diuresis with stable renal function. Continue current treatment but will need to monitor renal function closely and assess timing for transition to oral diuretic
Impression / Plan
-
Acute hypoxemic respiratory failure:
-Patient was on high-flow O2. O2 reduced. Now with nasal cannula O2 during the day and BiPAP at night
-Elevated pCO2. Treatment directed by pulmonary.
-getting abx with suspected PNA (fever, elevated WBC)
-covid and flu are negative
-Along with the above continuing diuresis. Monitor renal function
HFpEF: mild [id number]
-BNP elevated (but with abnormal renal function), weight much higher from previous (11/28/23 99.8 kg)
-Wt down to 108 from 116 on admission.
-Continue IV Lasix and monitor renal function
-recent echo as below
Hx TAVR:
-stable by recent echo as below
Pacemaker:
-tele stable
-continue to monitor in device clinic as OP
Non-ischemic myocardial injury:
-in setting of acute illness as above
TME:
-work up per medicine
Subjective:
she is not able to provide a history
Data:
TTE 06/30/23:
CONCLUSIONS
Normal biventricular size and systolic function without regional wall motion
abnormality.
Mild concentric left ventricular hypertrophy.
Mild mitral stenosis with a mean gradient of 5 mmHg.
Well seated, normally functioning bioprosthetic aortic valve (s/p TAVR).
Mild pulmonary hypertension.
Compared to previous echo 11/07/22, there is now mild mitral stenosis. Pulmonary
pressure has decreased from 58mmHg on the prior study to 47mmHg today
CXR: 08/05/23
1. Mild cardiomegaly with evidence for previous TAVR.
2. Increased vascular interstitial markings suggesting acute interstitial cardiogenic pulmonary edema.
3. Multiple irregular shaped centrilobular nodular opacities in both lungs. Diagnostic possibilities are (1) multifocal alveolar pulmonary edema, (2) multifocal infection or (3) pulmonary metastatic disease.
4. Left-sided cardiac pacemaker in place.
01/14/23:
IMPRESSION:
1. Multiple, bilateral pulmonary nodules as described. These show no significant interval increase in size as compared with the prior examination. There are numerous nodules which are partially obscured by atelectasis and edema on the prior study.
Given the number bilateral nodules, the findings are suspicious for metastatic disease.
2. Near complete resolution of interstitial edema. There is residual partial atelectasis of the left lower lobe. No other consolidation.
3. Small pericardial effusion, new as compared with prior study.
4. Subacute to chronic fracture anterior left fifth rib..
Physical Exam
Vital Signs/Labs
Vital Signs
Temp Pulse Resp BP Pulse Ox
98.5 F 71 20 167/93 97
08/09/23 03:10 08/09/23 07:28 08/09/23 07:28 08/08/23 20:00 08/09/23 07:28
08/08/23 08/09/23 08/10/23
06:59 06:59 06:59
Actual Weight 108.2 kg 106 kg
08/08/23 03:59
08/08/23 03:59
Magnesium 2.7 mg/dl (1.6-2.3) H 08/07/23 05:06
Triglycerides 163 mg/dl (10-149) H 08/06/23 04:34
LDL Cholesterol, Calc 54 mg/dl 08/06/23 04:34
VLDL Cholesterol, Calc 32 mg/dl (0-30) H 08/06/23 04:34
HDL Cholesterol 55 mg/dl 08/06/23 04:34
08/06/23
11:26
[id number]-[id number] Pept 59201
LAB Results
08/06/23 08/06/23
11:26 19:15
Troponin I 0.079 H* 0.062 H*
Physical Exam
Constitutional: No acute distress
Cardiovascular: Rhythm & rate is regular
Respiratory: Respiratory effort normal
GI: Soft
Neuro/Psych: Alert
Data Reviewed
-
Date of Service: August 09, 2023
Medical Decision Making: Reviewed Test Results
Medical Tests (PFT, Pathology etc): Report Reviewed by me
Labs: Labs Reviewed by me
--- NOTE | 2023-08-09 08:40 | W.PN.HOSP.TC ---
Addendum entered and electronically signed by Maxime Cantor MD 08/09/23 09:01:
Pt's [id number] updated over the phone at length. I explained to her that it would be reasonable to discuss goals of care. I recommended changing code status to DNR. Family will discuss and get back to the medical team.
Original Note:
Today's Communication/Plan
-
see bold
Assessment / Plan
Assessment / Plan
Gen: NAD, awake and alert
Eyes: EOMI, PERRLA, no scleral icterus.
Neck: supple.
CV: RRR, +S1/S2, no m/r/g.
Resp: remains CTAB anteriorly, no rales, wheezes, or rhonchi.
Abd: remains +BS, soft, NT, ND
Skin: No rashes.
Neuro: CN 2-12 intact, non-focal.
Psych: Normal mood and affect.
08/05/23 22:55 Blood/Venous Blood Culture - Preliminary
No Growth in 72 hours- Final report to follow
08/05/23 21:57 Blood/Venous Blood Culture - Preliminary
No Growth in 72 hours- Final report to follow
08/06/23 04:34 Nose Nasal Screen MRSA (PCR) - Final
MRSA not detected - performed by PCR methodology.
08/06/23 04:23 Urine Legionella Urinary Antigen - Final
Negative for Legionella pneumophila Serogroup 1 antigen.
A negative result does not rule out the possiblity of
Legionella infection due to other serogroups or species of
Legionella. Clinical correlation is recommended.
08/06/23 04:23 Urine Streptococcus pneumoniae Antigen (M - Final
Negative for Streptococcus pneumoniae antigen.
A negative result does not exclude infection with
Streptococcus pneumoniae. Clinical correlation is
recommended.
08/05/23 21:57 Nasal Swab Influenza Types A & B (SUYAPA) - Final
Negative for Influenza A & B, NAAT
Negative results must be combined with clinical observations
and patient history.
Nucleic Acid Amplification test (NAAT)performed on the
[email or web address] platform.
CT chest 08/07/23:
1. Limited study secondary to respiratory motion artifact.
2. Patchy airspace disease within both posterior lower lobes, posterior aspects of both upper lobes, and within the central aspect of the right middle lobe suspicious for multifocal pneumonia. No pleural effusions.
3. Again seen are couple of bilateral pulmonary nodules, including a stable 11 mm nodule within the medial right upper lobe and a 9 mm nodule within the left lower lobe. Additional nodule seen on the prior CT not well visualized on today's
examination secondary to motion artifact and airspace consolidation. Previously, these nodules were felt suspicious for metastatic disease. No gross hilar or mediastinal lymphadenopathy.
4. Moderate cardiomegaly.
CT brain: No acute intracranial pathology.
Acute on Chronic Hypoxemic and Hypercapnic Respiratory Failure:
-likely multifactorial and due to pneumonia (possibly aspiration) and Acute on Chronic HFpEF in the setting of OHS due to morbid obesity due to excess calories
-Acute metabolic encephalopathy due to above
-overnight pt continually was removing her BiPAP. Currently on 6-8L midflow.
-pulm/cards following
-cont Cefepime/IV Lasix
-steroids started
Other problems:
Morbid obesity due to excess calories, BMI 43.6
Elevated troponin due to Non-Ischemic Myocardial Injury due to CHF and PNA
SUMMER, resolved
Hyperkalemia, s/p rectal kayexalate 08/08/23, follow AM K
DM2: Increase Lantus to 32U, SSI/accuchecks
Hyperlipidemia: resume statin when able to take PO
Hypothyroidism resume levothyroxine when able to take PO
CAD: resume ASA/BB/statin when able to take PO
h/o CVA: resume ASA/statin when able to take PO
Poor prognosis.
Attempted to reach family on both phone numbers listed.
FULL/Heparin
Total time spent on today's encounter was 51 minutes which included time spent in counseling the patient/family regarding diagnosis and treatment plan as listed above, goals of care, and symptom management. Case was discussed with nursing staff,
specialists, and care coordinators/case management. All labs and imaging personally reviewed by me. Remainder the time spent in detailed review of previous records, lab data, imaging, and other medical provider documentation.
Anticipated Discharge: > 48 hours
Subjective/Interval History
-
Date of Service: August 09, 2023
Pt agitated/confused.
Objective Data
-
Vital Signs:
Vital Signs
Temp Pulse Resp BP Pulse Ox
98.5 F 71 20 167/93 97
08/09/23 03:10 08/09/23 07:28 08/09/23 07:28 08/08/23 20:00 08/09/23 07:28
I&O
08/08/23 08/09/23 08/10/23
06:59 06:59 06:59
Intake Total 30 / 30
Output Total 2400 / 2400 1200 / 1200
Balance -2400 / -2400 -1170 / -1170
[2023-08-09] MEDS: LASIX 20 MG IV (08:50)
[2023-08-09] MEDS: SOLU-MEDROL PF 40 MG IV ×2 (08:50→20:44)
--- NOTE | 2023-08-09 09:37 | PTCARENOTE ---
Pt is yelling out for help and yelling let me . taking off O2 and monitor leads since 729 this am Unable to redirect pt
[2023-08-09 10:15] LABS: Mean Corp Hgb Conc. 30.6 g/dL (33.0-37.0); Mean Corpuscular Hgb 25.6 pg (27.0-31.0); Mean Corpuscular Volume 83.9 fL (81.0-99.0); Mean Platelet Volume 9.1 fL (7.4-10.4); Platelet Count 304 10^3/uL (130-400); Red Blood Cell Count 4.29 10^6/uL (4.20-5.40); Red Cell Dist. Width 16.2 % (11.5-14.5); White Blood Cell Count 8.4 10^3/uL (4.8-10.8)
[2023-08-09 10:30] LABS: Blood Urea Nitrogen 42 mg/dl (7-17); Calcium 9.6 mg/dl (8.4-10.2); Carbon Dioxide 37 mmol/L (22-30); Chloride 100 mmol/L (98-107); Estimated Creatinine Clearance 75 ml/min; Glucose 227 mg/dl (70-99); Sodium 143 mmol/L (135-145); eGFR > 60.00
[2023-08-09] MEDS: DUONEB INH (11:26)
[2023-08-09 13:08] LABS: Glucose - Point of Care 231 mg/dl (70-99)
--- NOTE | 2023-08-09 13:19 | W.PN.PUL3 ---
Today's Communication / Plan
-
O2
Asp precs
BDs
BPAP
BD
Assessment
-
Assessment: 78-year-old morbidly obese female never smoker with a past medical history of asthma, hypothyroidism, hyperlipidemia, history of CVA, DM type II, AAS s/p TAVR and at risk for DASHAWN who presents from [facility] with shortness
of breath and hypoxia [employer]. EMS reported SpO2 75% on 4 L nasal cannula and patient normally is on room air at the halfway. Patient arrived to the ER on a nonrebreather and was confused but alert. Patient was febrile in the ER to 101.8 �F,
tachycardic to 104 bpm, breathing at 16-24 breaths/min, BP 138/66 and she was saturating 82% on room air which improved to 94% with 6 L/min. Labs showed acute on chronic hypercapnia with pH 7.23, pCO2 79 and pO2 367. Patient hyperkalemic to 5.7
with low sodium of 131, creatinine 1.2, troponin mildly elevated at 0.07, urinalysis negative for signs of UTI and COVID antigen also negative. Blood cultures were collected. CXR obtained showed mild cardiomegaly with increased vascular
interstitial markings suggestive of acute pulmonary edema. CT head obtained due to AMS showing no acute intracranial pathology. She was given Tylenol in the ER for her fever and admitted to the hospitalist service. Given her fever, antibiotics
were started and so was IV Lasix given concern for volume overload via her CXR. Due to her high pCO2 with AMS, she was started on BiPAP and now pulmonary consulted for additional management/recommendations.
Chronic conditions [employer]SE [employer]ER: Hypothyroidism, morbid obesity, hyperlipidemia, hypertension, history of asthma, history of CVA, DM type II, history of pneumonia, aortic stenosis s/p TAVR, at risk for sleep apnea, history of UTI
Impression:
#Acute hypoxemic respiratory failure on BiPAP 10/5 bled with 15L/min - due to CAP with interstitial edema in background of asthma
Pneumonia
#Acute on chronic hypercapnic respiratory failure likely due to OHS in setting of above
#Leukocytosis
#Chronic anemia
#Acute kidney injury with hyperkalemia - hyperkalemia now resolved
#Hyperglycemia
#Elevated troponin - peaked at 0.079 on 08/06/2023
#Transaminitis
#Hx of multiple lung nodules - stable
#At risk for DASHAWN
Delirium
Plan:
-Was refusing BiPAP 10/5 (O2 15L), usually by 22 hours overnight of August 07
Accept the BiPAP last night for about 6 hours
Remains confused and agitated during visit this morning as he was yesterday, however not in resp distress
O2 protocol to continue
Aspiration precautions
- Check CT chest 08-06: multifocal PNA
- Broad spectrum Abx with cefepime/vanco started 08-05--> IV vanco DC'd given negative MRSA swab
- Follow up blood Cx X2; could not provide sputum sample for cx (confusion, agitation)
- Diuresis - currently on 20mg IV lasix BID
- Trend sCr, UOP and serum K levels; treat for hyperkalemia with goal 4 - 5.2
- Continue DuoNebs QID with budesonide 0.5mg BID --> as she improves we can resume a LABA/ICS MDI
- Considering pt has developed worsening hypoxia, and given her history of asthma --> started solumedrol 40mg IV q12hr and wean as tolerated (already confused and agitated prior to initiation of CS)
- Maintain SpO2 >90-94% with supplemental O2 as needed
- Incentive spirometer encouraged, though will comply due to ongoing delirium
- Replete electrolytes with K>4, Mg>2
- Maintain euglycemia with goal BG >100 and <180
- prn nebulized bronchodilators
- DVT ppx
Data:
CXR 08-05-2023:
1. Mild cardiomegaly with evidence for previous TAVR.
2. Increased vascular interstitial markings suggesting acute interstitial cardiogenic pulmonary edema.
3. Multiple irregular shaped centrilobular nodular opacities in both lungs. Diagnostic possibilities are (1) multifocal alveolar pulmonary edema, (2) multifocal infection or (3) pulmonary metastatic disease.
4. Left-sided cardiac pacemaker in place.
CT Chest without Contrast 08-07-2023: Limited study secondary to respiratory motion artifact.
1. Patchy airspace disease within both posterior lower lobes, posterior aspects of both upper lobes, and within the central aspect of the right middle lobe suspicious for multifocal pneumonia. No pleural effusions.
2. Again seen are couple of bilateral pulmonary nodules, including a stable 11 mm nodule within the medial right upper lobe and a 9 mm nodule within the left lower lobe. Additional nodule seen on the prior CT not well visualized on today's
examination secondary to motion artifact and airspace consolidation. Previously, these nodules were felt suspicious for metastatic disease. No gross hilar or mediastinal lymphadenopathy.
3. Moderate cardiomegaly.
CT Head 08-06-2023: No acute intracranial pathology.
TTE 06-30-2023:
Normal biventricular size and systolic function without regional wall motion
abnormality.
Mild concentric left ventricular hypertrophy.
Mild mitral stenosis with a mean gradient of 5 mmHg.
Well seated, normally functioning bioprosthetic aortic valve (s/p TAVR).
Mild pulmonary hypertension.
Compared to previous echo 11/07/22, there is now mild mitral stenosis. Pulmonary
pressure has decreased from 58mmHg on the prior study to 47mmHg today.
Subjective Data
-
Date of Service:
Date of Service: August 09, 2023
Chief Complaint: Pulmonary Follow Up
Subjective:
Remains delirious and agitated
Review of Systems
General: Other (Delirious)
Objective Data
Data Reviewed
Vital Signs / I&O / Oxygen:
Vital Signs
Temp Pulse Resp BP Pulse Ox
97.4 F 76 17 126/105 97
08/09/23 07:14 08/09/23 12:00 08/09/23 12:00 08/09/23 08:50 08/09/23 12:00
Intake and Output
08/08/23 08/09/23 08/10/23
06:59 06:59 06:59
Intake Total 30 / 30
Output Total 2400 / 2400 1200 / 1200
Balance -2400 / -2400 -1170 / -1170
SaO2 97
Nasal Cannula flow liters per 6
minute
Physical Exam
General: Other (Delirious)
HEENT: Normocephalic, Anicteric and Moist Mucous Membranes
Cardiovascular: Regular Rhythm, Peripheral Edema (negative) and Other (normal rate)
Respiratory: Wheeze (negative), Crackles (negative), Rhonchi (bilaterally), Non-Labored Respirations and Stridor (n)
GI: Soft, Non Distended, Non Tender and Other (abdominal obesity)
Neurology: Awake and Other (Confused, agitated)
Skin: Warm and Dry
Labs/Micro/Reports
Lab Data
08/09/23 10:00
08/09/23 10:00
Microbiology
08/05/23 22:55 Blood/Venous Blood Culture - Preliminary
No Growth in 72 hours- Final report to follow
08/05/23 21:57 Blood/Venous Blood Culture - Preliminary
No Growth in 72 hours- Final report to follow
08/06/23 04:34 Nose Nasal Screen MRSA (PCR) - Final
MRSA not detected - performed by PCR methodology.
[2023-08-09 17:25] LABS: Glucose - Point of Care 240 mg/dl (70-99)
[2023-08-09] MEDS: LANTUS 0.320000000000000007 UNITS SC (21:18)
[2023-08-09 21:31] LABS: Glucose - Point of Care 222 mg/dl (70-99)
[2023-08-10] VITALS (12 sets, daily range): BP systolic 123–181; BP diastolic 76–155; BMI 41.8
[2023-08-10 00:09] LABS: Glucose - Point of Care 220 mg/dl (70-99)
[2023-08-10] MEDS: MAXIPIME 2000 MG IV (00:15)
[2023-08-10] MEDS: HEPARIN 5000 UNITS SC ×2 (00:15→08:33)
[2023-08-10] MEDS: STERILE WATER FOR INJECTION 10 ML IV (00:16)
[2023-08-10] MEDS: NOVOLOG FLEXPEN-MODERATE RESISTANCE 3 UNITS SC ×2 (00:26→05:34)
[2023-08-10] MEDS: ZOFRAN 4 MG IV ×2 (00:48→09:37)
--- NOTE | 2023-08-10 01:16 | PTCARENOTE ---
Pt was on Bipap and called out that she was nauseated and was 'going to throw up' she was taken off the bipap and still was nauseated. ECONOMIC CONSULTANT notified and Zofran given with relief. Pt remains off Bipap and will monitor for more nausea. Earlier she
was very interested in brushing her teeth multiple times and complaining of dryness in her mouth. she also complains of dryness in her eyes and does not like the lights on in her room. She is forgetful and very [place]. She was repositioned multiple
times for comfort. She said 'I want to go' and indicated that she wants to . Pt given emotional support and allowed to verbalize. The plan is for family to have discussions in the morning for plan of care.
--- NOTE | 2023-08-10 03:10 | PTCARENOTE ---
Pt noted to have O2 sat of 79% on 15 liters MFNC so added NRBMask and improved to 99% and watched pt and slow,y lower O2 at 13 l MFNC and sat is 99%. Resp therapist tried to put pt on Bipap but pt refused. Will continue to monitor.
[2023-08-10 04:10] LABS: Hematocrit 37.2 % (37.0-47.0); Hemoglobin 11.3 g/dL (12.0-16.0); Mean Corp Hgb Conc. 30.4 g/dL (33.0-37.0); Mean Corpuscular Volume 82.3 fL (81.0-99.0); Mean Platelet Volume 9.2 fL (7.4-10.4); Platelet Count 289 10^3/uL (130-400); Red Blood Cell Count 4.52 10^6/uL (4.20-5.40); Red Cell Dist. Width 16.2 % (11.5-14.5); White Blood Cell Count 8.3 10^3/uL (4.8-10.8)
[2023-08-10 04:31] LABS: Blood Urea Nitrogen 46 mg/dl (7-17); Calcium 9.8 mg/dl (8.4-10.2); Chloride 98 mmol/L (98-107); Estimated Creatinine Clearance 65 ml/min; Glucose 216 mg/dl (70-99); Potassium 4.4 mmol/L (3.5-5.1); Sodium 143 mmol/L (135-145); eGFR > 60.00
[2023-08-10 04:42] LABS: Carbon Dioxide 38 mmol/L (22-30)
[2023-08-10 05:44] LABS: Glucose - Point of Care 200 mg/dl (70-99)
[2023-08-10] MEDS: DUONEB 3 ML INH (07:39)
[2023-08-10] MEDS: PULMICORT 0.5 MG INH (07:39)
[2023-08-10] MEDS: LASIX 20 MG IV (08:31)
[2023-08-10] MEDS: SOLU-MEDROL PF 40 MG IV (08:33)
--- NOTE | 2023-08-10 08:34 | W.PN.CD ---
Today's Communication / Plan
-
can continue diuresis untile GOC solidified.
She will likely transition to Comfort care
I will sign off
Impression / Plan
-
Acute hypoxemic respiratory failure:
-Patient was on high-flow O2. O2 reduced. Now with nasal cannula O2 during the day and BiPAP at night
-Elevated pCO2. Treatment directed by pulmonary.
-getting abx with suspected PNA (fever, elevated WBC)
-covid and flu are negative
-Along with the above continuing diuresis. Monitor renal function
HFpEF: mild [id number]
-BNP elevated (but with abnormal renal function), weight much higher from previous (11/28/23 99.8 kg)
-Wt down to 103.6 from 116 on admission.
-Continue IV Lasix and monitor renal function
-recent echo as below
Hx TAVR:
-stable by recent echo as below
Pacemaker:
-tele stable
-continue to monitor in device clinic as OP
Non-ischemic myocardial injury:
-in setting of acute illness as above
TME:
-work up per medicine
Patient is alert and son at the bedside. She is very clear that she doesn't want aggressive care anymore. Her son says she has been in and out of the hospital multiple times this year, and he understands her wishes. She wants to transition to
comfort care. I sent a message to Dr Yepez who will discuss.
Subjective:
she is finished with all of the this, wants to be left alone, wants to rather than do all of this and keep coming in and out of the hospital.
Data:
TTE 06/30/23:
CONCLUSIONS
Normal biventricular size and systolic function without regional wall motion
abnormality.
Mild concentric left ventricular hypertrophy.
Mild mitral stenosis with a mean gradient of 5 mmHg.
Well seated, normally functioning bioprosthetic aortic valve (s/p TAVR).
Mild pulmonary hypertension.
Compared to previous echo 11/07/22, there is now mild mitral stenosis. Pulmonary
pressure has decreased from 58mmHg on the prior study to 47mmHg today
CXR: 08/05/23
1. Mild cardiomegaly with evidence for previous TAVR.
2. Increased vascular interstitial markings suggesting acute interstitial cardiogenic pulmonary edema.
3. Multiple irregular shaped centrilobular nodular opacities in both lungs. Diagnostic possibilities are (1) multifocal alveolar pulmonary edema, (2) multifocal infection or (3) pulmonary metastatic disease.
4. Left-sided cardiac pacemaker in place.
01/14/23:
IMPRESSION:
1. Multiple, bilateral pulmonary nodules as described. These show no significant interval increase in size as compared with the prior examination. There are numerous nodules which are partially obscured by atelectasis and edema on the prior study.
Given the number bilateral nodules, the findings are suspicious for metastatic disease.
2. Near complete resolution of interstitial edema. There is residual partial atelectasis of the left lower lobe. No other consolidation.
3. Small pericardial effusion, new as compared with prior study.
4. Subacute to chronic fracture anterior left fifth rib..
Physical Exam
Vital Signs/Labs
Vital Signs
Temp Pulse Resp BP Pulse Ox
98.4 F 74 20 175/80 100
08/10/23 07:06 08/10/23 07:25 08/10/23 07:25 08/10/23 04:00 08/10/23 07:25
08/09/23 08/10/23 08/11/23
06:59 06:59 06:59
Actual Weight 106 kg 103.6 kg
08/10/23 03:49
08/10/23 03:49
Magnesium 2.7 mg/dl (1.6-2.3) H 08/07/23 05:06
Triglycerides 163 mg/dl (10-149) H 08/06/23 04:34
LDL Cholesterol, Calc 54 mg/dl 04/18/24 04:34
VLDL Cholesterol, Calc 32 mg/dl (0-30) H 08/06/23 04:34
HDL Cholesterol 55 mg/dl 08/06/23 04:34
08/06/23
11:26
[id number] Pept [id number]
Physical Exam
Constitutional: No acute distress
Cardiovascular: Rhythm & rate is regular and JVD pressure is normal
Respiratory: Respiratory effort normal, Lungs clear to auscul., Wheeze Absent, Crackles Absent and Rhonchi Absent
Neuro/Psych: AO x 3
Data Reviewed
-
Date of Service: August 10, 2023
EKG: Other (tele sinus with intermittent pacing)
Medical Tests (PFT, Pathology etc): Discussed with Physician (Dr Cintron wishes to transition to comfort care) and Discussed with Family (she wishes to transition to comfort care)
--- NOTE | 2023-08-10 08:54 | W.PN.HOSP.TC ---
Addendum entered and electronically signed by Linus Yepez MD 08/11/23 13:54:
Sepsis
Original Note:
Today's Communication/Plan
-
Discharge planning to inpatient hospice today.
Assessment / Plan
Assessment / Plan
Gen: awake. Acutely ill
Eyes: EOMI, PERRLA, no scleral icterus.
Neck: supple.
CV: RRR, +S1/S2, no m/r/g.
Resp: remains CTAB anteriorly, no rales, wheezes, or rhonchi.
Abd: remains +BS, soft, NT, ND
Skin: No rashes.
Neuro: CN 2-12 intact, non-focal. Encephalopathic.
08/05/23 22:55 Blood/Venous Blood Culture - Preliminary
No Growth in 72 hours- Final report to follow
08/05/23 21:57 Blood/Venous Blood Culture - Preliminary
No Growth in 72 hours- Final report to follow
08/06/23 04:34 Nose Nasal Screen MRSA (PCR) - Final
MRSA not detected - performed by PCR methodology.
08/06/23 04:23 Urine Legionella Urinary Antigen - Final
Negative for Legionella pneumophila Serogroup 1 antigen.
A negative result does not rule out the possiblity of
Legionella infection due to other serogroups or species of
Legionella. Clinical correlation is recommended.
08/06/23 04:23 Urine Streptococcus pneumoniae Antigen (M - Final
Negative for Streptococcus pneumoniae antigen.
A negative result does not exclude infection with
Streptococcus pneumoniae. Clinical correlation is
recommended.
08/05/23 21:57 Nasal Swab Influenza Types A & B (SUYAPA) - Final
Negative for Influenza A & B, NAAT
Negative results must be combined with clinical observations
and patient history.
Nucleic Acid Amplification test (NAAT)performed on the
[employer] platform.
CT chest 4/19/24:
1. Limited study secondary to respiratory motion artifact.
2. Patchy airspace disease within both posterior lower lobes, posterior aspects of both upper lobes, and within the central aspect of the right middle lobe suspicious for multifocal pneumonia. No pleural effusions.
3. Again seen are couple of bilateral pulmonary nodules, including a stable 11 mm nodule within the medial right upper lobe and a 9 mm nodule within the left lower lobe. Additional nodule seen on the prior CT not well visualized on today's
examination secondary to motion artifact and airspace consolidation. Previously, these nodules were felt suspicious for metastatic disease. No gross hilar or mediastinal lymphadenopathy.
4. Moderate cardiomegaly.
CT brain: No acute intracranial pathology.
A/P:
Acute on Chronic Hypoxemic and Hypercapnic Respiratory Failure:
-likely multifactorial and due to pneumonia (possibly aspiration) and Acute on Chronic HFpEF in the setting of OHS due to morbid obesity due to excess calories
-Acute metabolic encephalopathy due to above
-overnight pt continually was removing her BiPAP. Currently on 6-8L midflow.
-pulm/cards following
-cont Cefepime/IV Lasix
-steroids started
Other problems:
Morbid obesity due to excess calories, BMI 43.6
Elevated troponin due to Non-Ischemic Myocardial Injury due to CHF and PNA
SUMMER, resolved
Hyperkalemia, s/p rectal kayexalate 08/08/23, follow AM K
DM2: Increase Lantus to 32U, SSI/accuchecks
Hyperlipidemia: resume statin when able to take PO
Hypothyroidism resume levothyroxine when able to take PO
CAD: resume ASA/BB/statin when able to take PO
h/o CVA: resume ASA/statin when able to take PO
Poor prognosis.
FULL/Heparin
Disposition: I had lengthy discussion with cardiology, pulmonary, and family. Discussed with family and explained the gravity of the situation and poor prognosis and they have decided favor of comfort care measures. Hospice care consulted.
Patient will be discharged to inpatient hospice care today.
Total time spent on today's encounter was 51 minutes which included time spent in counseling the patient/family regarding diagnosis and treatment plan as listed above, goals of care, and symptom management. Case was discussed with nursing staff,
specialists, and care coordinators/case management. All labs and imaging personally reviewed by me. Remainder the time spent in detailed review of previous records, lab data, imaging, and other medical provider documentation.
Anticipated Discharge: Today
Subjective/Interval History
-
Date of Service: August 10, 2023
Patient remains shortness of breath and encephalopathic. Looks frail
Objective Data
-
Labs:
Laboratory Results
08/10/23
03:49
WBC 8.3
Hgb 11.3 L
Hct 37.2
Plt Count 289
Sodium 143
Potassium 4.4
Chloride 98
Carbon Dioxide 38 H
BUN 46 H
Creatinine 0.8
Glucose 216 H
Calcium 9.8
Vital Signs:
Vital Signs
Temp Pulse Resp BP Pulse Ox
98.4 F 74 20 174/91 100
08/10/23 07:06 08/10/23 08:31 08/10/23 07:25 08/10/23 08:31 08/10/23 07:25
I&O
08/09/23 08/10/23 08/11/23
06:59 06:59 06:59
Intake Total 30 / 30
Output Total 1200 / 1200 1800 / 1800
Balance -1170 / -1170 -1800 / -1800
[2023-08-10] MEDS: ATIVAN 0.5 MG IV (09:47)
--- NOTE | 2023-08-10 09:53 | PTCARENOTE ---
Patient awake, alert and anxious stating that she is dying with family at bedside. Son Tobin stated to RN that he wants his mom to be comfort care and DNR. Dr. Yepez notified. IV Zofran and Ativan administerd with relief. [employer] consulted.
--- NOTE | 2023-08-10 10:16 | W.PN.PUL3 ---
Today's Communication / Plan
-
Continue BiPAP as patient allows
Continue antibiotics
Continue nebulizers DuoNebs/Pulmicort
Continue steroids
Continue IV diuretics
Prognosis is guarded
Assessment
-
Assessment: 78-year-old morbidly obese female never smoker with a past medical history of asthma, hypothyroidism, hyperlipidemia, history of CVA, DM type II, AAS s/p TAVR and at risk for DASHAWN who presents from [facility] with shortness
of breath and hypoxia [employer]. EMS reported SpO2 75% on 4 L nasal cannula and patient normally is on room air at the alf. Patient arrived to the ER on a nonrebreather and was confused but alert. Patient was febrile in the ER to 101.8 �F,
tachycardic to 104 bpm, breathing at 16-24 breaths/min, BP 138/66 and she was saturating 82% on room air which improved to 94% with 6 L/min. Labs showed acute on chronic hypercapnia with pH 7.23, pCO2 79 and pO2 367. Patient hyperkalemic to 5.7
with low sodium of 131, creatinine 1.2, troponin mildly elevated at 0.07, urinalysis negative for signs of UTI and COVID antigen also negative. Blood cultures were collected. CXR obtained showed mild cardiomegaly with increased vascular
interstitial markings suggestive of acute pulmonary edema. CT head obtained due to AMS showing no acute intracranial pathology. She was given Tylenol in the ER for her fever and admitted to the hospitalist service. Given her fever, antibiotics
were started and so was IV Lasix given concern for volume overload via her CXR. Due to her high pCO2 with AMS, she was started on BiPAP and now pulmonary consulted for additional management/recommendations.
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
Impression:
#Acute hypoxemic respiratory failure on BiPAP 10/5 bled with 15L/min - due to CAP with interstitial edema in background of asthma
Pneumonia
#Acute on chronic hypercapnic respiratory failure likely due to OHS in setting of above
#Leukocytosis
#Chronic anemia
#Acute kidney injury with hyperkalemia - hyperkalemia now resolved
#Hyperglycemia
#Elevated troponin - peaked at 0.079 on 08/06/2023
#Transaminitis
#Hx of multiple lung nodules - stable
#At risk for DASHAWN
Delirium
Plan:
Unfortunately, respiratory status remains tenuous.
Continue noninvasive mechanical ventilation as able if the patient allows.
DNR status noted.
-
CT chest 08-06: multifocal PNA
- Broad spectrum Abx with cefepime/vanco started 08-05--> IV vanco DC'd given negative MRSA swab
- Follow up blood Cx X2; could not provide sputum sample for cx (confusion, agitation)-So far negative.
-Continue IV diuresis per cardiology. Correspondence reviewed. Poor prognosis-cardiology has signed off.
-
- Continue DuoNebs QID with budesonide 0.5mg BID.
Continue empirical solumedrol 40mg IV q12hr and wean as tolerated (already confused and agitated prior to initiation of CS)
- Maintain SpO2 >90-94% with supplemental O2 as needed
- Incentive spirometer encouraged, though will comply due to ongoing delirium
-
- Replete electrolytes with K>4, Mg>2
- Maintain euglycemia with goal BG >100 and <180, insulin as needed.
- DVT ppx
-
I agree with goals of care discussion.
Data:
CXR 08-05-2023:
1. Mild cardiomegaly with evidence for previous TAVR.
2. Increased vascular interstitial markings suggesting acute interstitial cardiogenic pulmonary edema.
3. Multiple irregular shaped centrilobular nodular opacities in both lungs. Diagnostic possibilities are (1) multifocal alveolar pulmonary edema, (2) multifocal infection or (3) pulmonary metastatic disease.
4. Left-sided cardiac pacemaker in place.
CT Chest without Contrast 08-07-2023: Limited study secondary to respiratory motion artifact.
1. Patchy airspace disease within both posterior lower lobes, posterior aspects of both upper lobes, and within the central aspect of the right middle lobe suspicious for multifocal pneumonia. No pleural effusions.
2. Again seen are couple of bilateral pulmonary nodules, including a stable 11 mm nodule within the medial right upper lobe and a 9 mm nodule within the left lower lobe. Additional nodule seen on the prior CT not well visualized on today's
examination secondary to motion artifact and airspace consolidation. Previously, these nodules were felt suspicious for metastatic disease. No gross hilar or mediastinal lymphadenopathy.
3. Moderate cardiomegaly.
CT Head 08-06-2023: No acute intracranial pathology.
TTE 06-30-2023:
Normal biventricular size and systolic function without regional wall motion
abnormality.
Mild concentric left ventricular hypertrophy.
Mild mitral stenosis with a mean gradient of 5 mmHg.
Well seated, normally functioning bioprosthetic aortic valve (s/p TAVR).
Mild pulmonary hypertension.
Compared to previous echo 11/07/22, there is now mild mitral stenosis. Pulmonary
pressure has decreased from 58mmHg on the prior study to 47mmHg today.
Subjective Data
-
Date of Service:
Date of Service: August 10, 2023
Chief Complaint: Pulmonary Follow Up (Acute hypoxemic/hypercapnic respiratory failure)
Review of Systems
Cardiopulmonary: Dyspnea, Dyspnea on Exertion and Cough (n)
GI: Abdominal Pain (n) and Nausea (n)
Objective Data
Data Reviewed
Vital Signs / I&O / Oxygen:
Vital Signs
Temp Pulse Resp BP Pulse Ox
98.4 F 74 20 174/91 100
08/10/23 07:06 08/10/23 08:31 08/10/23 07:25 08/10/23 08:31 08/10/23 07:25
Intake and Output
08/09/23 08/10/2308/10/24
06:59 06:59 06:59
Intake Total
Output Total 1200 / 1200 1800 / 1800
Balance -1170 / -1170 -1800 / -1800
SaO2 100
Nasal Cannula flow liters per 6
minute
Physical Exam
General: Other (Delirious)
HEENT: Normocephalic, Anicteric and Moist Mucous Membranes
Cardiovascular: Regular Rhythm, Peripheral Edema (negative) and Other (normal rate)
Respiratory: Wheeze (negative), Crackles (negative), Rhonchi (bilaterally), Non-Labored Respirations and Stridor (n)
GI: Soft, Non Distended, Non Tender and Other (abdominal obesity)
Neurology: Awake and Other (Confused, agitated)
Skin: Warm and Dry
Labs/Micro/Reports
Lab Data
08/10/23 03:49
08/10/23 03:49
Microbiology
08/05/23 22:55 Blood/Venous Blood Culture - Preliminary
No Growth in 4 days- Final report to follow
08/05/23 21:57 Blood/Venous Blood Culture - Preliminary
No Growth in 4 days- Final report to follow
--- NOTE | 2023-08-10 10:26 | PN.CDI ---
CDI
- -
CDI:
Physician Documentation Request
Admit Date: 08/05/23 23:13
Dear Doctor Marleni,
Please review the following and provide your response in the progress notes.
Clinical Indicators: Pt admitted for respiratory failure due to pneumonia.
08/04 admission: WBC 11.3, temp 101.8, HR 100's, RR 20-30
08/08 PN:' likely multifactorial and due to pneumonia (possibly aspiration)'
'Acute on Chronic Hypoxemic and Hypercapnic Respiratory Failure and SUMMER'
08/06 CT report: 'Patchy airspace disease within both posterior lower lobes, posterior aspects of both upper lobes, and within the central aspect of the right middle lobe suspicious for multifocal pneumonia. No pleural effusions.'
IV antibiotics Cefepime and Vancomycin
Please clarify which of the following most accurately describes the status of the patient's infection:
Sepsis
- Systemic manifestations of infection, with 2 or more SIRS criteria which include:
- Fever >100.4 degrees F or hypothermia < 96.8 degrees F
- Leukocytosis - WBC > 12,000 or leukopenia - WBC < 4,000 or > 10% bands
- Tachycardia > 90 beats per minute
- Tachypnea - RR > 20 breaths per minute or PaCO2 , 32mmHg
Source: Merck Manual 2013
- Indicate the known or suspected organism
- Indicate the known or suspected underlying infection, such as UTI, pneumonia or cellulitis
- Indicate if a suspected bacterial infection of unknown source
Severe Sepsis
- Sepsis with associated acute organ dysfunction, such as renal or respiratory failure
- Documentation should indicate the association between the sepsis and the organ dysfunction
Localized Infection Only, Without Systemic Illness-pneumonia
- indicate the site/source, such as UTI, pneumonia etc.
Other
Use of terms such as suspected, likely, concern for, or probable (associated with a specific diagnosis that is being evaluated, monitored, or treated as if it exists) are acceptable and can be coded in the inpatient setting, when documented at the
time of discharge.
Thank you,
Iram Isidro RN, BSN
CDI Specialist
Please use your independent medical judgment in providing your response.
[2023-08-10] MEDS: DUONEB INH (11:38)
--- NOTE | 2023-08-10 11:53 | CM ---
Patient from [facility] with Dx Acute Hypoxemic / Hypercapnic Respiratory Failure, pneumonia, HF, Acute metabolic encephalopathy. O2 6L midflow. Ativan IV prn. MS IV prn. Comfort care.
Met with patient, son CHRISTINA Rudd and daughter in law CHRISTINA Sherman this morning; explained hospice philosophy & benefits. They were agreeable to meeting with the Hospice nurse.
Spoke with Elizabeth, nurse Hospice; the plan is for the patient to remain here in [facility]/general inpatient hospice.
Spoke with Alvina Siu [place]; informed her that patient would be staying here in [facility] hospice.
Plan [facility] hospice.
--- NOTE | 2023-08-10 11:59 | HOSPNOTE ---
Spoke with patients family and they decided on hospice care. Patient will remain inpatient hospice. Admissions was called and case management aware of plan. Patient will be moving to orth. `
--- NOTE | 2023-08-10 12:27 | CM ---
Patient from [facility] with Dx Acute Hypoxemic / Hypercapnic Respiratory Failure, pneumonia, HF, Acute metabolic encephalopathy. O2 6L midflow. Ativan IV prn. MS IV prn. Comfort care.
Met with patient, son CHRISTINA Rudd and daughter in law CHRISTINA Sherman this morning; explained hospice philosophy & benefits. They were agreeable to meeting with the Hospice nurse.
Spoke with Kaylin, nurse Hospice; the plan is for the patient to remain here in [facility]/general inpatient hospice.
Spoke with Alvina Siu [place]ir[place]; informed her that patient would be staying here in [facility] hospice.
Plan [facility] hospice.
[2023-08-10 12:36] LABS: Glucose - Point of Care 198 mg/dl (70-99)
--- NOTE | 2023-08-10 13:41 | W.DCSUMMARY ---
Discharge Summary
Discharge Data
Date of Admission: 08/05/23
Date of Discharge: 08/10/23
-
Pending Results: No
Hospital Course
Patient is 78 years old female history of TAVR, pacemaker, CHF, CVA, diabetes mellitus, hypertension, presented to the hospital worsening shortness of breath, mental status changes, and fever. Patient was found to have pneumonia and CHF. She was
treated with IV antibiotics and IV diuresis. Cardiology and pulmonary were consulted. Despite best care, patient continued to deteriorate clinically and has not shown significant signs of improvement. After further discussion with family they
decided in favor of comfort care measures. Patient will be discharged and admitted to inpatient hospice care today.
Discharge duration: 35 minutes
Discharge Plan
-
Patient Disposition: Hospice - Inpatient DH
Discharge Orders:
Discharge Patient (As Directed); Ordered 08/10/23
Ordered By: Linus Yepez
Discharge Date and Time
Discharge Date/Time: 08/10/23 12:49
Print Language: CITIZEN OF [place]
--- NOTE | 2023-08-11 08:49 | W.HF.CON ---
Heart Failure
- LV Function
Left ventricular function study result: LV Ejection fraction >40%
Ejection Fraction Percentage: 55-60
- ARNI
Patient already on ARNI: No
Heart Failure ARNI Not Indicated: LV Ejection Fraction >/= 40%
- ACEI/ARB
Patient already on ACEI/ARB: No
Heart Failure ACEI/ARB Not Indicated: LV Ejection Fraction > 40%
- Beta Carlos
Patient already on Evidence Based Beta Carlos: No
Heart Failure Evidence Based Beta Carlos Not Indicated: LV Ejection Fraction > 40%
- Mineralocorticord Receptor Antagonist
Patient already on MRA: No
Heart Failure MRA Not Indicated: LV Ejection Fraction > 40%
- SGLT-2 Inhibitor
Patient already on SGLT-2 Inhibitor: No
Heart Failure SGLT-2 Inhibitor Not Indicated: LV Ejection Fraction >40%
- NYHA CHF Classification
NYHA CHF Classification Level: Class III - Symptoms w/ min exertion, interferes w/ nml daily activity
- ACC/AHA Stage
ACC/AHA Stage: Stage C: Symptomatic Heart Failure (pneumonia, comfort measures)
== END 2023-08-10 12:49 | disposition home or self-care (01) | DRG 871 ==
LOC: IMU 23:13
PROVIDERS: Internal Medicine; Internal Medicine Critical Care Medicine; Physician Assistant Medical; Psychiatry & Neurology Psychiatry; ADMITTING PHYSICIAN Hospitalist; ATTENDING PHYSICIAN Hospitalist; CONSULT PHYSICIAN Internal Medicine Cardiovascular Disease; CONSULT PHYSICIAN Internal Medicine Pulmonary Disease; EMERGENCY PHYSICIAN Emergency Medicine; FAMILY PHYSICIAN Internal Medicine
DX: A41.9 Sepsis, unspecified organism (principal); G93.41 Metabolic encephalopathy; I50.33 Acute on chronic diastolic (congestive) heart failure; J69.0 Pneumonitis due to inhalation of food and vomit; J96.22 Acute and chronic respiratory failure with hypercapnia; J96.21 Acute and chronic respiratory failure with hypoxia; N17.9 Acute kidney failure, unspecified; Z68.41 Body mass index [BMI] 40.0-44.9, adult; I5A Non-ischemic myocardial injury (non-traumatic); E87.5 Hyperkalemia; E66.01 Morbid (severe) obesity due to excess calories; I11.0 Hypertensive heart disease with heart failure; E11.65 Type 2 diabetes mellitus with hyperglycemia; Z79.4 Long term (current) use of insulin
CPT/HCPCS: 36415; 70450; 71045; 71250; 80048; 80053; 80061; 81003; 81015; 82140; 82805; 82962; 83605; 83735; 83880; 84145; 84443; 84484; 85025; 85027; 86140; 87040; 87449; 87502; 87641; 87811; 87899; 92610; 93005; 94640; 94660; 96374; 96375; 99285

== ENCOUNTER 2023-08-10 12:51 | Inpatient (IN) | payer OTHER, SELFPAY ==
--- NOTE | 2023-08-10 13:44 | HPS.HSE ---
Family Physician
-
Family Physician: NOT KNOW UNKNOWN - PT DOES
Chief Complaint
-
Shortness of breath
History of Present Illness
Patient is 78 years old female history hypertension, hyperlipidemia, TAVR , CHF, pacemaker CVA, presented to the hospital with pneumonia and CHF. Patient with IV antibiotics and IV diuretics. Patient did poorly rest of the hospital stay in acute
care hospital so family decided in favor of comfort care measures. Patient with generalized weakness, shortness of breath, dysphagia, mental status change. She was referred to hospitalist for further evaluation.
Medical History
Past Medical History
Past Medical History: Reports Other (Hypertension, hyperlipidemia, diabetes mellitus, pacemaker, CHF, chronic lymphedema, CVA, history of cauda equina syndrome status post surgery, TAVR)
Past Surgical History: Reports Other (TAVR)
Social History
Unable to obtain full social history at this time due to: Acuity (And patient encephalopathy.)
Family History
Family History: Not pertinent
Allergies / Home Medications
Allergies reflects when Allergies were last updated in [employer].
Home Medications with original date entered in [employer]
Allergy/Medication List:
Allergies
Allergy/AdvReac Type Severity Reaction Status Date / Time
erythromycin base Allergy Anaphylaxis Verified 08/05/23 21:17
Home Medications
albuterol sulfate 90 mcg/actuation aerosol inhaler 2 puff inhalation R Q4HPRN PRN sob/wheezing 05/01/22
fluticasone furoate 200 mcg-vilanterol 25 mcg/dose inhalation powder (Breo Ellipta) 1 inh inhalation R DAILY Lung/breathing issues 05/01/22
levothyroxine 50 mcg tablet 50 mcg PO DAILY AT 0700 Thyroid 05/01/22
metoprolol succinate 50 mg tablet,extended release 24 hr 50 mg PO DAILY Blood pressure 05/01/22
ondansetron HCl 4 mg tablet 4 mg PO [id number] PRN nausea 11/03/22
sodium chloride 0.65 % nasal spray aerosol (Saline Nasal) 1 sprays intranasal QIDPRN PRN dry nose/congestion 11/22/22
aspirin 81 mg chewable tablet 81 mg PO DAILY #30 tabs 11/25/22
acetaminophen 325 mg tablet 650 mg PO Q6HPRN PRN Mild Pain / Temp > 101 08/05/23
acetaminophen 500 mg tablet 1,000 mg PO DAILY 08/05/23
benzonatate 100 mg capsule 200 mg PO Q8HPRN PRN cough 08/05/23
ciprofloxacin 0.3 %-dexamethasone 0.1 % ear drops,suspension 4 drp LEFT EAR BID 08/05/23
diphenhydramine HCl 25 mg capsule (Benadryl) 25 mg PO Q8HPRN PRN itching 08/05/23
docusate sodium 100 mg capsule 100 mg PO [id number] PRN constipation 08/05/23
emollient combination no.119 (Eucerin Advanced Repair topical cream) 1 applic topical BID 08/05/23
furosemide 40 mg tablet (Lasix) 20 mg PO DAILY 08/05/23
hydrocortisone 1 % topical cream (Preparation H Hydrocortisone) 1 applic topical [id number] PRN hemorroids 08/05/23
insulin glargine 100 unit/mL subcutaneous solution (Lantus U-100 Insulin) 34 unit SC HS Diabetes 08/05/23
insulin lispro 100 unit/mL subcutaneous pen (Admelog SoloStar U-100 Insulin lispro) 0 - 7 sliding scale dose SC AC 08/05/23
insulin lispro 100 unit/mL subcutaneous pen (Admelog SoloStar U-100 Insulin lispro) 10 unit SC AC 08/05/23
ipratropium 0.5 mg-albuterol 3 mg (2.5 mg base)/3 mL nebulization soln 3 ml inhalation R BID 08/05/23
ipratropium 0.5 mg-albuterol 3 mg (2.5 mg base)/3 mL nebulization soln 3 ml inhalation R Q4HPRN PRN cough 08/05/23
ipratropium 0.5 mg-albuterol 3 mg (2.5 mg base)/3 mL nebulization soln 3 ml inhalation R QID 08/05/23
lidocaine 4 % topical patch 1 patch topical DAILY 08/05/23
loperamide 2 mg tablet (Imodium A-D) 2 mg PO Q8HPRN PRN diarrhea 08/05/23
nystatin 100,000 unit/gram topical powder 1 applic topical BID 08/05/23
ofloxacin 0.3 % eye drops 2 drp RIGHT EYE Q4 08/05/23
rosuvastatin 40 mg tablet 40 mg PO HS 08/05/23
saliva substitute combo no.9 (Biotene Dry Mouth Oral Rinse mouthwash) 15 ml PO Q8HPRN PRN dry mouth 08/05/23
Review of Systems
-
Unable to obtain full review of systems at this time due to: Acuity (Patient encephalopathy)
Physical Exam
Vital Signs
Physical exam:
General: Acutely ill
HEENT: Normocephalic, Atraumatic and Moist Mucous Membranes
Respiratory: Decreased breath sound bilateral. Crackles.
Cardiac: Regular Rhythm and S1/S2
GI: Soft, Nontender and Nondistended
Musculoskeletal: No Clubbing, No Cyanosis. Edema bilateral
Neuro: Lethargic, generalized weakness.
Physical Exam
General: Other
Impression/Plan
-
IMPRESSION:
Patient is 78 years old female with multiple comorbidities presented to the hospital with pneumonia and acute on chronic diastolic congestive heart failure. Patient admitted to inpatient hospice care in the hospital.
Impression:
Shortness of breath
Mental status changes
Dysphagia
Hypoxia
Pneumonia
Acute on chronic diastolic CHF
PLAN:
Morphine as needed for pain or shortness of breath
Ativan as needed
Bowel regimen as needed
If multiple morphine boluses, then can transition to morphine drip. This has been ordered.
DVT prophylaxis not needed since patient is on comfort
CODE STATUS DNR/comfort care
--- NOTE | 2023-08-10 14:47 | CM ---
Patient from [facility] with Dx Acute Hypoxemic / Hypercapnic Respiratory Failure, pneumonia, HF, Acute metabolic encephalopathy. O2 6L midflow. Ativan IV prn. MS IV prn. Comfort care.
Met with patient, son CHRISTINA Rudd and daughter in law CHRISTINA Sherman this morning; explained hospice philosophy & benefits. They were agreeable to meeting with the Hospice nurse.
Spoke with Kaylin, nurse Hospice; the plan is for the patient to remain here in [facility]/general inpatient hospice.
Spoke with Alvina Siu [place]; informed her that patient would be staying here in [facility] hospice.
Plan [facility] hospice.
[2023-08-10 14:53] VITALS: BP 146/78
[2023-08-10 15:37] VITALS: BMI 41.8
--- NOTE | 2023-08-10 16:05 | HOSPNOTE ---
Patient has been admitted to inpatient level of hospice. Patient is appropriate for inpatient level of hospice for the management of pain and agitation that can not be managed in an outside setting. Son Tobin signed consents and was at bedside.
Patient will be moved to room 2138. Informal report with SIERRA Chen. She is aware patient has signed onto inpatient level of hospice. Emotional support provided. Patient will be seen daily by hospice.
--- NOTE | 2023-08-10 16:50 | PTCARENOTE ---
Report for transfer given to Yuri RN. Patients family educated about plan of care and new room assignment. Patient is denying pain when asked, patient is calm drinking coca cola with family at bedside. No signs of respiratory distress at this time.
Belongings sent with patients.
[2023-08-10] MEDS: ATIVAN 1 MG PO (21:21)
[2023-08-10 23:07] VITALS: BP 145/67
[2023-08-11] MEDS: REFRESH EYE DROPS (PF) 1 DROPS OPHTH ×2 (05:40→11:49)
[2023-08-11 07:40] VITALS: BP 116/52
--- NOTE | 2023-08-11 08:32 | W.PN.HOSP.TC ---
Today's Communication/Plan
-
Continue comfort care measures.
Assessment / Plan
Assessment / Plan
Physical exam:
General: Acutely ill
HEENT: Normocephalic, Atraumatic and Moist Mucous Membranes
Respiratory: Decreased breath sound bilateral. Crackles.
Cardiac: Regular Rhythm and S1/S2
GI: Soft, Nontender and Nondistended
Musculoskeletal: No Clubbing, No Cyanosis. Edema bilateral
Neuro: Alert, generalized weakness.
A/P:
Impression:
Shortness of breath
Mental status changes, improved
Dysphagia
Hypoxia
Pneumonia
Acute on chronic diastolic CHF
PLAN:
Morphine as needed for pain or shortness of breath
Ativan as needed
Bowel regimen as needed
If multiple morphine boluses, then can transition to morphine drip. This has been ordered.
Discussed with family at length today--> they want to make sure that they are doing the right decision and while she is more alert today, there is no question she is a hospice candidate so we will reevaluate if anything needs to change depending on
how she does moving forward.
Discussed with RN
Discussed with hospice office coordinator
DVT prophylaxis not needed since patient is on comfort
CODE STATUS DNR/comfort care
Anticipated Discharge: > 48 hours
Subjective/Interval History
-
Date of Service: August 11, 2023
Patient is more alert today. She does states clear that she knows she is at the end of her life and she wants to be comfortable.
Objective Data
-
Vital Signs:
Vital Signs
Temp Pulse Resp BP Pulse Ox
98.4 F 72 18 145/67 96
08/10/23 23:07 08/10/23 23:07 08/10/23 23:07 08/10/23 23:07 08/10/23 23:07
I&O
08/10/23 08/11/23 08/12/23
06:59 06:59 06:59
Intake Total 680 / 680
Output Total 550 / 550
Balance 130 / 130
[2023-08-11] MEDS: MORPHINE SULFATE 1 MG IV ×3 (11:01→18:33)
[2023-08-11] MEDS: ATIVAN 1 MG PO ×2 (11:02→22:02)
--- NOTE | 2023-08-11 11:25 | HOSPNOTE ---
Long meeting with family again about the hospice and the use of medications. Patient was on 8L of oxygen when I arrived in the room but has increased respirations. I educated family and patient about using medications and lowering oxygen support.
The family needed more time to discuss but ultimately agreed with the plan. If patient remains stable within the next 2 days we will discuss discharge to [facility] with hospice care. Will continue to monitor and assess daily. Floor RN and Attending
updated with plan and in agreement.
--- NOTE | 2023-08-11 12:03 | PTCARENOTE ---
Pt refusing shafer at this time.
--- NOTE | 2023-08-11 14:20 | CM ---
CM reviewed chart- pt remains on service with [facility] hospice
Per hospice, if pt stabilizes in the next few days, can consider transfer back to [facility] with hospice service
CM will remains available for dc planning
Discharge Disposition- [facility]
--- NOTE | 2023-08-11 15:33 | CHAP ---
Addendum entered by Feliciano Dennis 08/11/23 15:58:
Contacted Fr. Tray Zeng from [facility] in [place], who agreed to come.
Original Note:
Ame was sleeping peacefully. Visited with son, Tobin and [id number], Whit, who shared that the family was together with Ame yesterday. Emotional and spiritual support provided; we offered readings and supplications from the [place]
Ritual. Will contact the hydro generation manager television maintenance worker for [employer].
[2023-08-11 23:48] VITALS: BP 97/59
[2023-08-12] MEDS: MORPHINE SULFATE 1 MG IV ×3 (01:09→10:05)
[2023-08-12 07:40] VITALS: BP 118/69
--- NOTE | 2023-08-12 09:01 | W.PN.HOSP.TC ---
Today's Communication/Plan
-
Continue comfort care measures
Assessment / Plan
Assessment / Plan
Physical exam:
General: Acutely ill
HEENT: Normocephalic, Atraumatic and Moist Mucous Membranes
Respiratory: Decreased breath sound bilateral. Crackles and wheezes.
Cardiac: Regular Rhythm and S1/S2
GI: Soft, Nontender and Nondistended
Musculoskeletal: No Clubbing, No Cyanosis. Edema bilateral
Neuro: Alert, generalized weakness.
A/P:
Impression:
Shortness of breath
Mental status changes
Dysphagia
Hypoxia
Pneumonia
Acute on chronic diastolic CHF
PLAN:
Morphine as needed for pain or shortness of breath
Grigsby catheter placed today
On 3 L of supplemental oxygen today
Ativan as needed
Bowel regimen as needed
If multiple morphine boluses, then can transition to morphine drip. This has been ordered.
Discussed with family at length yesterday
Discussed with RN today
Discussed with type cutter yesterday
DVT prophylaxis not needed since patient is on comfort
CODE STATUS DNR/comfort care
Anticipated Discharge: > 48 hours
Subjective/Interval History
-
Date of Service: August 12, 2023
Patient appears comfortable. On supplemental oxygen.
Objective Data
-
Vital Signs:
Vital Signs
Temp Pulse Resp BP Pulse Ox
98.2 F 106 20 118/69 95
08/12/23 07:40 08/12/23 07:40 08/12/23 07:40 08/12/23 07:40 08/12/23 07:40
I&O
08/11/23 08/12/23 08/13/23
06:59 06:59 06:59
Intake Total 680 / 680 1919
Output Total 550 / 550
Balance 130 / 130 1919
[2023-08-12] MEDS: ATIVAN 1 MG PO ×3 (10:04→23:39)
--- NOTE | 2023-08-12 12:53 | HOSPNOTE ---
Patient yells in pain when turned. Due to the patient's incontinence a 16f shafer catheter was inserted. Patient oxygen support titrated down to 2L. Patient does get very anxious and needs medication of morphine and ativan prior to any positioning.
Patient will be seen daily by hospice nurse.
--- NOTE | 2023-08-12 14:21 | CM ---
Reviewed the chart notes. Patient remains [facility].
Plan: [facility] with potential to discharge back to [facility] facility on hospice.
--- NOTE | 2023-08-12 17:00 | CHAP ---
Msgr. Tray Lynch of [facility] in [place] was called and came to give Ame the anointing, Holy Communion, and an apostolic blessing.
[2023-08-12 19:39] VITALS: BP 110/69
[2023-08-13 07:00] VITALS: BP 109/66
--- NOTE | 2023-08-13 08:05 | W.PN.HOSP.TC ---
Today's Communication/Plan
-
Continue comfort care measures
Assessment / Plan
Assessment / Plan
Physical exam:
General: Acutely ill
HEENT: Normocephalic, Atraumatic and Moist Mucous Membranes
Respiratory: Decreased breath sound bilateral. Crackles and wheezes.
Cardiac: Regular Rhythm and S1/S2
GI: Soft, Nontender and Nondistended
Musculoskeletal: No Clubbing, No Cyanosis. Edema bilateral
Neuro: Alert, generalized weakness.
A/P:
Impression:
Shortness of breath
Mental status changes
Dysphagia
Hypoxia
Pneumonia
Acute on chronic diastolic CHF
PLAN:
Morphine as needed for pain or shortness of breath
Grigsby catheter placed today
On supplemental oxygen today
Ativan as needed
Bowel regimen as needed
If multiple morphine boluses, then can transition to morphine drip. This has been ordered.
Discussed with family at length yesterday
Discussed with RN today
Discussed with transportation agent yesterday
DVT prophylaxis not needed since patient is on comfort
CODE STATUS DNR/comfort care
Anticipated Discharge: > 48 hours
Subjective/Interval History
-
Date of Service: August 13, 2023
No new complaints. Supplemental oxygen
Objective Data
-
Vital Signs:
Vital Signs
Temp Pulse Resp BP Pulse Ox
97.7 F 105 22 109/66 80
08/13/23 07:00 08/13/23 07:00 08/13/23 07:00 08/13/23 07:00 08/13/23 07:00
I&O
08/12/23 08/13/23 08/14/23
06:59 06:59 06:59
Intake Total 1919 / 2159
Output Total 1724 / 172
Balance 1919 435 / 435
[2023-08-13] MEDS: MORPHINE SULFATE 1 MG IV ×4 (11:20→23:24)
[2023-08-13] MEDS: ATIVAN 1 MG PO ×3 (11:20→23:22)
--- NOTE | 2023-08-13 13:02 | HOSPNOTE ---
Extensive visit with family and patient discussing the use of oxygen vs medications. Patient was changed and repositioned and washed and refused to place the oxygen back on. The patient was medicated prior to care and seems very comfortable at this
time. The patient does get anxious however ativan seems to work very well with the morphine. I would encourage medicating for shortness of breath and agitation. Patient will be seen daily by hospice nurse. Updated the floor RN with the above.
Patient continues to be inpatient appropriate at this time.
[2023-08-13 23:17] VITALS: BP 124/45
[2023-08-14 07:00] VITALS: BP 130/96
--- NOTE | 2023-08-14 07:34 | W.PN.HOSP.TC ---
Today's Communication/Plan
-
Continue comfort care measures
Assessment / Plan
Assessment / Plan
Physical exam:
General: Acutely ill
HEENT: Normocephalic, Atraumatic and Moist Mucous Membranes
Respiratory: Decreased breath sound bilateral. Crackles and wheezes. Tachypneic
Cardiac: Regular Rhythm and S1/S2
GI: Soft, Nontender and Nondistended
Musculoskeletal: No Clubbing, No Cyanosis. Edema bilateral
Neuro: Lethargic generalized weakness.
A/P:
Impression:
Shortness of breath
Mental status changes
Dysphagia
Hypoxia
Pneumonia
Acute on chronic diastolic CHF
PLAN:
Morphine as needed for pain or shortness of breath
Grigsby catheter for comfort
Patient did not want supplemental oxygen but this was discontinued.
Ativan as needed
Bowel regimen as needed
If multiple morphine boluses, then can transition to morphine drip. This has been ordered.
Discussed with family at bedside today 08/13
Discussed with RN today today 08/13
Discussed with communications department chair today 08/13
DVT prophylaxis not needed since patient is on comfort
CODE STATUS DNR/comfort care
Anticipated Discharge: 24 - 48 hours
Subjective/Interval History
-
Date of Service: August 14, 2023
Patient more lethargic and more short of breath overall today. Tachypneic.
Objective Data
-
Vital Signs:
Vital Signs
Temp Pulse Resp BP Pulse Ox
98.5 F 81 14 130/96 84
08/14/23 07:00 08/14/23 07:00 08/14/23 07:00 08/14/23 07:00 08/14/23 07:00
I&O
08/13/23 08/14/23 08/15/23
06:59 06:59 06:59
Intake Total 2160 / 2160 580 / 580
Output Total 1725 / 1725 1000 / 1000
Balance 435 / 435 -420 / -420
[2023-08-14] MEDS: MORPHINE SULFATE 1 MG IV ×2 (08:26→11:04)
[2023-08-14] MEDS: ATIVAN 2 MG IV ×2 (11:35→16:50)
[2023-08-14] MEDS: NSS (PRESERVATIVE FREE) 1 ML IV ×2 (11:36→16:49)
--- NOTE | 2023-08-14 12:12 | PTCARENOTE ---
Addendum entered by Sailaja Linares RN 08/14/23 16:04:
pt started on step 1 morphine gtt at 1311. gtt is going through pt L wrist IV site at this time. pt has been comfortable and not in need of any breakthroughs at this time.
Original Note:
this nurse reached out to MD and hospice nurse about transitioning Ativan from PO to IV and about pts amount of morphine prn doses. all individuals in agreement pt is appropriate for morphine gtt and MD placed order for IV ativan and step 1 morphine
gtt. family is in agreement at bedside. pt is 84% on RA and is being properly medicated for her verbalized dyspnea at this time.
--- NOTE | 2023-08-14 12:15 | HOSPNOTE ---
Patient will be started on a morphine drip since the patient has had multiple PRN doses IV push. Patient still appears to have increased respirations Floor RN reached out to attending and myself and all in agreement. Family is bedside and in
agreement. Patient will be seen daily by hospice aide.
[2023-08-14] MEDS: MORPHINE 100 IV (13:11)
--- NOTE | 2023-08-14 13:52 | CM ---
Reviewed the chart notes. Patient not on a Morphine gtt. CM continues to be available to patient/family and is monitoring medical plan for needs at discharge.
Patient remains [facility].
[2023-08-14] MEDS: ROBINUL 0.200000000000000011 MG IV (16:49)
[2023-08-14] MEDS: MORPHINE SULFATE 2 MG IV (16:50)
[2023-08-14 19:40] VITALS: BP 117/57
--- NOTE | 2023-08-15 06:52 | W.PN.DEATH ---
Pronouncement of
-
Called to see patient to pronounce.
No spontaneous heart tones or respirations noted.
Patient not responsive to verbal stimuli.
Patient is pronounced .
Time of : 06:45
Date of : 08/15/23
Cause of : acute hypoxic respiratory failure due to multifocal pneumonia
Family Notified: Yes (son dorota)
--- NOTE | 2023-08-15 08:14 | W.DCSUMMARY ---
Discharge Summary
Discharge Data
Date of Admission: 08/10/23
Date of Discharge: 08/15/23
-
Pending Results: No
Hospital Course
Patient is 78 years old female history of hypertension, hyperlipidemia, TAVR, CHF, pacemaker, CVA presented to the hospital shortness of breath found to have pneumonia and CHF. Despite aggressive treatment patient continued to deteriorate and
decision was made by patient and family to move forward with comfort care measures. Patient was admitted to hospice inpatient care. She was placed on comfort medications. Patient on 08/15/2023 at 6:45. Let her soul rest in peace.
Discharge Plan
-
Patient Disposition:
Date/Time
Date/Time: 08/15/23 06:45
Discharge Date and Time
Discharge Date/Time: 08/15/23 06:45
Print Language: ROMANIAN
--- NOTE | 2023-08-15 10:38 | CM ---
Patient @ 6:45 AM on this date.
== END 2023-08-15 06:45 | disposition expired | DRG 951 ==
LOC: 2 NORTH 12:51
PROVIDERS: ADMITTING PHYSICIAN Hospitalist
DX: Z51.5 Encounter for palliative care (principal); I50.33 Acute on chronic diastolic (congestive) heart failure; J18.9 Pneumonia, unspecified organism; J96.01 Acute respiratory failure with hypoxia; G93.40 Encephalopathy, unspecified; I11.0 Hypertensive heart disease with heart failure; E78.5 Hyperlipidemia, unspecified; R13.10 Dysphagia, unspecified; Z86.73 Personal history of transient ischemic attack (TIA), and cerebral infarction without residual deficits; Z95.2 Presence of prosthetic heart valve